=== PATIENT | male | born 1975 | race American Indian/Alaskan Native ===

== ENCOUNTER 2024-08-05 13:52 | Emergency (ER) | payer MEDICAID, SELFPAY ==
[2024-08-05 14:05] VITALS: BP 152/77; PULSE 77; RESP 18; TEMP 37.6; O2SAT 99
--- NOTE | 2024-08-05 14:10 | EDNOTE_ITS ---
ED General RME/HPI General Chief complaint: [facility] Compl[facility] Stated complaint: CATHETER ISSUES Time Seen by Provider: 08/05/24 14:09 Arrival date/time: 08/05/24 13:52 RME / HPI RME / HPI narrative: 49 year old male with history of recent quadriplegia s/p spinal cord injury due to C3 L5 fracture 06/02/2024 presents to the ED BIBA from home for evaluation of suprapubic catheter problems. Reports he had the suprapubic catheter placed during his admission at [facility] from 06/02/2024 through yesterday 08/04/2024 and was changed two weeks ago. States the suprapubic catheter had been working well up until this morning. Stated there was no urine in the bag and urine was leaking from his penis. No other associated symptoms reported. Denies fevers, chills, cough, shortness of breath, abdominal pain. Related Data Allergies Allergy/AdvReac Type Severity Reaction Status Date / Time johnson flavor Allergy Unknown SWELLING Unverified 07/11/08 11:55 Review of Systems Review of Systems Narrative Review of Systems: Constitutional: DENIES; Fevers Eyes: DENIES; Loss of vision Head/Ear/Nose: DENIES; Loss of hearing Throat: DENIES; Dysphagia Cardiovascular: DENIES; Chest pain, dyspnea or syncope Respiratory: DENIES; Shortness of breath Gastrointestinal: DENIES; Rectal bleeding or melena. Genitourinary: SEE HPI +collado catheter problems. DENIES; Dysuria (painful or difficult urination) Musculoskeletal: DENIES; Arthralgia (pain in a joint),; Skin: DENIES; Rash Neurological: DENIES; Loss of function or movement Psychiatric: DENIES; recent major life stressor, emotional problem, illicit drug use or abuse Endocrinology: DENIES; Weight change Hematologic/Lymphatic: DENIES; Abnormal bruising Allergic/Immunologic: DENIES; Urticaria (hives) Past Medical History Social History SMOKING STATUS: Never smoker ED Exam Narrative Physical exam: Patient is a quadriplegic from a recent spine injury comes into ER by EMS. Physical Exam: General: The vital signs were reviewed. Patient has intermittent involuntary movements of the right leg and unable to move his legs and has some movement of his right arm with a patent airway, no respiratory distress and has no apparent circulatory problems. Head & Scalp: Normocephalic, atraumatic. Face: Appears normal and is without lesions, deformity. Ears: Left external pinna appears normal. Right external pinna appears normal. Eyes: The sclera is anicteric. No obvious photophobia. The Left and Right Orbit/Lid/Conjunctiva appears normal without swelling, discoloration or injection. Nose: The nose is without deformity, discharge or tenderness; Throat: Appears normal. The mucous membranes are pink and moist without exudates, redness or mass seen. The tongue appears normal. Neck: The neck is supple and no apparent mass or adenopathy. Chest: The chest wall is normal in size and symmetry and has no chest wall tenderness or crepitus. The patient displays normal ventilator effort without retractions, accessory muscle use and has adequate air movement bilaterally with no wheezes and no rales. Cardiovascular: Regular rate and rhythm; No murmurs, rubs, or gallops; Gastrointestinal: The abdomen appears normal. No obvious hernias or mass. The abdomen is soft and benign, non-distended, with no pain, no guarding and no rebound tenderness. Bowel sounds are present and normal sounding. No CVA tenderness. Genitourinary: Patient was removed into room 8 because of high ER volumes we were able to actually get his close off and evaluate him until about 1730 hrs. we realize he has a suprapubic catheter not a Collado. See [facility] for further procedure Back/Spine: Extremities/Musculoskeletal/lymphatic: Some movement of the right arm minimal movement or not on the left right leg has some intermittent spasms. No purposeful movement. Skin: The skin is warm, dry and intact. No rashes. No petechia. No purpura. No abnormal bruising. The color is appropriate with no cyanosis. Mental status/Psychiatric: Mental status is appropriate for age. The patient has no apparent delusions, visual hallucinations, no apparent audible hallucinations. The patient has no apparent suicidal thoughts/ideation and no apparent homicidal thoughts/ideation. Neurological: The patient is awake, alert, interactive, cordial, cooperative and is oriented to name and situation. The patient follows answers questions appropriately The gait, station and balance a not tested due to acuity Course Quality Measures none Orders Category Date Time Status Collado to Leg Bag Routine Care 08/05/24 14:09 Ordered Vital Signs Vital signs: Vital Signs Temperature 99.6 F 08/05/24 14:05 Pulse Rate 77 08/05/24 14:05 Respiratory Rate 18 08/05/24 14:05 Blood Pressure 152/77 H 08/05/24 14:05 Pulse Oximetry (%) 99 08/05/24 14:05 Oxygen Delivery Method Room Air 08/05/24 14:05 Pulse ox is 99% on room air which is adequate. MDM Patient data External records reviewed:: EMS form Clinical information provided by:: patient and EMS Social determinants that could affect healthcare access:: none Patient has the following chronic illnesses:: recent quadriplegia s/p spinal cord injury due to C3 L5 fracture 06/02/2024 How is presenting disease/condition affected by chronic disease/condition?: exacerbated by Evaluation data The following diagnostics were reviewed and interpreted by me:: other (specify) (None ) Lab and/or radiology exams considered but not ordered:: None Interpretation Summary: As noted above Medications Medications considered but not ordered:: None Medication administrations:: None Consultations Consultation(s) initiated? (list below): No Diagnosis Differential Diagnosis ED Complaint MDM: SP catheter failure, SP catheter malfunction Most likely diagnosis given after review of the tests above:: Failed suprapubic catheter due to debris quadriplegia urethral breakdown from previous Collado. Admission Indicated Admission indicated?: not indicated Explain why admission is indicated or not indicated:: Patient signed out to Dr. Johnson Admission Request Was there a request for admission?: No Disposition Plan Disposition Plan: other (specify) (Signed out to Dr. Johnson pending ) Medical Decision Making MDM Narrative MDM Narrative: Patient is a see 3 and L5 quadriplegic from a recent accident he was at [facility] from June 02 till yesterday where he was discharged. Today his catheter was not functioning and he is leaking around his urethra. He denies any fever vomiting diarrhea he does not complain of any pain or other discomfort. Patient sat in the ambulance bay where high census in no room but eventually got into a room 8 where we discovered that he has a suprapubic catheter at about 1740 hrs. and then we tried to irrigate this but fluids will go and but nothing will go out in the urine is leaking out the urethra. We do not have urology services here and this is a fresh suprapubic catheter only 2 weeks and I do not feel comfortable changing this because of this he will need to be transferred to [facility] where they have his urological services and his last 2 months of care. Care will go to Dr. Johnson at 1810 hrs. 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
[2024-08-05 14:31] VITALS: PULSE 82; TEMP 38; O2SAT 98; BMI 27.3
[2024-08-05 15:48] VITALS: BP 142/83; PULSE 75; RESP 17; TEMP 36.9; O2SAT 96
[2024-08-05 18:01] VITALS: BP 134/79; PULSE 77; RESP 19; TEMP 37; O2SAT 94
--- NOTE | 2024-08-05 18:04 | PC.CC ---
Ladan ALSTON was consulted by concert singer Parisa regarding transportation back home for the patient. ASW made face to face contact with patient who reported [facility] will arrange for patient to be transported back home. ASW made contact with Captain Jacobs at [facility] and reported they will arrange transportation for the patient to return back home. When he is ready we can make contact with them at .
--- NOTE | 2024-08-05 18:06 | PC.CC ---
ASW was just informed that patient will not be needing transportation as patient will be a transfer.
--- NOTE | 2024-08-05 18:12 | EDNOTE_ITS ---
Emergency Room Addendum Addendum Narrative: 1800: Care assumed from Dr. Love the previous shift emergency physician. Past medical, surgical, social and family history reviewed. Vitals and home medications reviewed. Results and treatment plan discussed. I will assume the care of the patient at this time and will follow the patient, pending labs and transfer. Please refer to the emergency department record for history and examination from initial visit. 1843: Spoke with [facility]'s transfer center. Awaiting callback on whether or not they accept the patient for transfer. 2016: [facility]'s urologist recommends new suprapubic catheter placement. CBC is normal, CMP is normal, according to my interpretation. 2124: Patient's suprapubic catheter is now functionally properly and is flushing. Calling [facility] back at this time. 2125: Spoke with [facility]'s transfer center. Transfer is cancelled. UA is negative for nitrites. Urine culture is ordered. Patient is stable to be discharged home.
--- NOTE | 2024-08-05 18:21 | PC.NURSE ---
PT HAS SUPRAPUBIC CATH IN PLACE. PT CAME IN TODAY D/T LEAKING OUT OF PENIS, AND DRAINAGE AT INSERTION SITE OF CATH.
--- NOTE | 2024-08-05 18:25 | PC.CM ---
Addendum entered by Jodi Lizama RN 08/05/24 20:02: 2002 spoke to ED charge nurse and gave update. ED to follow from here. Addendum entered by Jodi Lizama RN 08/05/24 18:41: 1840 called [facility], spoke to Susan and initiated the transfer request. She stated she wants to speak with Dr. Johnson. Conference call connected. Original Note: 6 clinicals sent to [facility]. 1812 received call from ED charge nurse that pt needs to be transferred to [facility] for urology services/ continuation of care. Pt has subrapubic catheter but urine is leaking out of penis and drainage at the insertion site. I reviewed 's notes Reports he had the suprapubic catheter placed during his admission at [facility] from 06/02/2024 through yesterday.
[2024-08-05 18:35] LABS: Collection Type, Urine Catheter; Squamous Epithelial Cell,Urine 0 /hpf (0-5)
[2024-08-05 18:56] LABS: Lactate (Lactic Acid) 1.2 mMol/L (0.4-2.0)
[2024-08-05 19:04] LABS: Basophils # (Auto) 0.1 Thou/mm3 (0.0-0.2); Basophils % (Auto) 1 % (0-2.5); Eosinophils # (Auto) 0.2 Thou/mm3 (0.0-0.5); Eosinophils % (Auto) 3 % (0-10); Hematocrit 37.3 % (41.0-53.0); Hemoglobin 12.7 g/dL (13.5-16.0); Immature Granulocytes % (Auto) 0 % (0-0); Immature Granulocytes Auto 0.02 Thou/mm3 (0.00-0.00); Lymphocytes # (Auto) 2.1 Thou/mm3 (1.0-4.8); Lymphocytes % (Auto) 31 % (10-50); Mean Corpuscular Hemoglobin 29.2 pg (25.0-35.0); Mean Corpuscular Volume 86 fL (80-100); Monocytes # (Auto) 0.7 Thou/mm3 (0.0-0.8); Monocytes % (Auto) 10 % (0-12); Neutrophils # (Auto) 3.7 Thou/mm3 (1.8-7.7); Neutrophils % (Auto) 55 % (37-80); Nucleated Red Blood Cell % 0 /100 WBC (0); Platelet Count 294 Thou/mm3 (140-440); RDW Standard Deviation 43.3 fL (35.1-43.9); Red Blood Count 4.35 Miln/mm3 (4.50-5.90); White Blood Count 6.7 Thou/mm3 (3.8-10.6)
[2024-08-05 19:14] LABS: Amorphous Crystals,Urine Present (Absent); Bilirubin,Urine Negative (Negative); Blood,Urine 1+ (Negative); Clarity,Urine Turbid (Clear/Hazy); Color,Urine Yellow (Lt Yel-Yel); Glucose, Urine Negative (Negative); Ketones,Urine Negative (Negative); Leukocyte Esterase,Urine Positive (Negative); Nitrite,Urine Negative (Negative); Protein,Urine Trace (Neg - Trace); RBC,Urine 34 /hpf (0-3); Specific Gravity,Urine 1.016 (1.001-1.035); Urobilinogen,Urine Negative mg/dL (0.0-1.0); WBC,Urine 42 /hpf (0-5)
[2024-08-05 19:18] LABS: Culture Indicated,Urine Yes
[2024-08-05 19:18] LABS: Alanine Aminotransferase 49 U/L (10-49); Albumin, Serum 4.5 gm/dL (3.5-5.0); Albumin/Globulin Ratio 1.5 (1.2-2.2); Alkaline Phosphatase 68 U/L (46-116); Anion Gap 9 (7-16); Aspartate Amino Transferase 21 U/L (0-34); BUN/Creatinine Ratio 18 Ratio (12-20); Bilirubin,Total 0.5 mg/dL (0.3-1.2); Blood Urea Nitrogen 11 mg/dL (9-23); Calcium 9.9 mg/dL (8.3-10.6); Calcium (Corrected) 9.9 mg/dL (8.5-10.1); Chloride 105 mMol/L (98-107); Creatinine (Component) 0.6 mg/dL (0.6-1.3); Estimated Creatinine Clearance 142.5 mL/min (>60); Glucose 97 mg/dL (74-106); Osmolality,Calculated 276 (275-295); Potassium 3.6 mMol/L (3.4-5.1); Sodium 139 mMol/L (136-145); Total Protein 7.5 gm/dL (5.7-8.2); eGFR > 60 See Note
--- NOTE | 2024-08-05 20:05 | PC.NURSE ---
SP cath is draining urine. Pt has not had urine from penis since arival.
--- NOTE | 2024-08-05 21:26 | PC.NURSE ---
212, ACCEPTED TO [facility], ED TO ED BY , REPORT #[phone],SPOKE TO MARSHALL.
== END 2024-08-05 23:41 ==
PROVIDERS: Emergency Provider Emergency Medicine; PCP Physician Assistant
DX: T83.018A Breakdown (mechanical) of other urinary catheter, initial encounter (principal); G82.50 Quadriplegia, unspecified; Y84.6 Urinary catheterization as the cause of abnormal reaction of the patient, or of later complication, without mention of misadventure at the time of the procedure
CPT/HCPCS: 36415; 80053; 81001; 83605; 85025; 87077; 87086; 87186; 99285

== ENCOUNTER → 2024-08-13 | Outpatient (CLI) | payer MEDICAID, SELFPAY | END | disposition home or self-care (01) | PROVIDERS: PCP Internal Medicine; Referring Provider Internal Medicine; Visit Provider Student in an Organized Health Care Education/Training Program | DX: S14.109A Unspecified injury at unspecified level of cervical spinal cord, initial encounter (principal); W19.XXXA Unspecified fall, initial encounter; G82.50 Quadriplegia, unspecified; I10 Essential (primary) hypertension; Z93.0 Tracheostomy status | CPT/HCPCS: 99213; G0463 ==

== ENCOUNTER 2024-09-10 14:22 | Emergency (ER) | payer MEDICAID, SELFPAY ==
[2024-09-10 15:04] VITALS: BP 119/75; PULSE 77; RESP 20; TEMP 36.7; O2SAT 97
--- NOTE | 2024-09-10 15:35 | PD.EDMALE ---
ED Male Genitalurinary RME/HPI General Chief complaint: Urogenital-Male Stated complaint: CATHETER REPLACEMENT Time Seen by Provider: 09/10/24 14:28 Arrival date/time: 09/10/24 14:22 RME / HPI RME / HPI Narrative: 49 year old male with history of recent quadriplegia s/p spinal cord injury due to C3 L5 fracture 06/02/2024, previously had a chronic indweling collado catheter and is s/p suprapubic catheter placement 2 months ago presents to the ED BIBA from home for catheter malfunction. Patient reports after placement 2 months ago the catheter was draining well until this morning. Believes the catheter may be clogged. No other associated symptoms or complaints reported. Related Data Allergies Allergy/AdvReac Type Severity Reaction Status Date / Time johnson flavor Allergy Unknown SWELLING Unverified 07/11/08 11:55 Review of Systems Review of Systems Narrative Review of Systems: Gen: No fever, no chills, no weight loss EYES: No discharge, no visual changes, no pain HEENT: No ear pain, no congestion, no sore throat PULM: no shortness of breath, no cough, no congestion CV: No chest pain, no dyspnea on exertion, no palpitations, no chest tightness GI: No nausea, no vomiting, no diarrhea, no pain, no constipation : +catheter malfunction. No frequency, no urgency,? no dysuria Musc/skel: No joint pain, no back pain Skin: No rash, no ecchymosis, no lesions Neuro: No weakness, no headache Past Medical History Past Medical History NEUROLOGIC: Positive Paralysis (INCOMPLETE PARALYSIS) GENITOURINARY: Positive Genitourinary Disorders (SUPRAPUBIC CATH) OTHER HISTORY: Positive Blood Transfusions Surgical History SURGICAL: Positive Tracheostomy (REMOVED 07/22) Social History SMOKING STATUS: Never smoker ED Exam Narrative Physical exam: GENERAL APPEARANCE: AxOx4, no obvious distress, nontoxic appearing HEENT: NC, AT. MMM. EOMI, clear conjunctiva, oropharynx clear. NECK: Supple without lymphadenopathy. No stiffness or restricted ROM. HEART: Normal rate and regular rhythm, normal S1/S1, no m/r/g LUNGS: CTAB, moving air well. No crackles or wheezes are heard. ABDOMEN: Soft, suprapubic catheter noted, nontender, nondistended with good bowel sounds heard. BACK: No midline C/T/L spine pain or deformity, No CVAT, no obvious deformity. EXTREMITIES: Without cyanosis, clubbing or edema. MUSCULOSKELETAL: Paraplegic, no chest tenderness NEUROLOGICAL: Grossly nonfocal. Alert and oriented, paraplegic. CN not formally tested but appear grossly intact. Skin: Warm and dry without any rash. Course Quality Measures none Orders Category Date Time Status Nursing Core Measures: PRN Care 09/10/24 14:40 Active Reevaluation(s) Reevaluation #1: Catheter was irrigated and draining well. Patient remains clinically stable throughout the emergency department visit. Patient is amenable to discharge. Strict return precautions were outlined. Patient was discharged in stable condition. Time: 16:30 Vital Signs Vital signs: Vital Signs Temperature 98.1 F 09/10/24 15:04 Pulse Rate 77 09/10/24 15:04 Respiratory Rate 20 09/10/24 15:04 Blood Pressure 119/75 09/10/24 15:04 Pulse Oximetry (%) 97 09/10/24 15:04 Oxygen Delivery Method Room Air 09/10/24 15:04 Pulse ox is 97% on room air which is adequate. Urogenital - Male MDM Narrative MDM Narrative:: Rohini Loving am scribing for and in the presence of Dr. Negro. Patient data External records reviewed:: [facility] previous records (I reviewed ED visit on ) and EMS form Clinical information provided by:: patient, EMS and spouse () Social determinants that could affect healthcare access:: none Patient has the following chronic illnesses:: recent quadriplegia s/p spinal cord injury due to C3 L5 fracture 06/02/2024, previously had a chronic indweling collado catheter and is s/p suprapubic catheter placement 2 months ago How is presenting disease/condition affected by chronic disease/condition?: exacerbated by Evaluation data The following diagnostics were reviewed and interpreted by me:: other (specify) (No diagnostic testing ordered) Lab and/or radiology exams considered but not ordered:: None Interpretation Summary: N/A Medications / Prescriptions Medications or Prescriptions considered but not ordered:: None Medication administrations:: None Consultations Consultation(s) initiated? (list below): No Diagnosis Urogenital Male Differential Diagnosis: urinary tract infection, acute retention of urine and other (Suprapubic catheter malfunction) Most likely diagnosis given after review of the tests above:: Blocked suprapubic catheter Admission Indicated Admission indicated?: not indicated Admission Request Was there a request for admission?: No Disposition Plan Disposition Plan: Discharge Discharge Attestation Discharge Attestation: The patient and all family members were given an opportunity to ask questions and understood the discharge instructions. Discharge instructions specifically effects, indications for sooner follow up or return to the emergency department, and the expected course of current diagnosis. Patient condition: Stable Discharge Plan Plan Patient Disposition: HOME (Self Care) Problem List Clinical Impression: Blocked suprapubic catheter Patient/Caregiver Discharge Instructions Education Materials: Discharge Instructions Caring ... Additional Instructions: Follow-up with your primary care doctor as needed. Please return to the emergency department sooner symptoms worsen or if there is any new, concerning issues. Print Language: Estonian Stand Alone Forms: Cris Award Info., Patient Portal Info Letter
[2024-09-10 15:58] VITALS: PULSE 86; RESP 16; O2SAT 99
[2024-09-10 16:15] VITALS: BP 130/81; PULSE 75; RESP 18; TEMP 36.9; O2SAT 94
--- NOTE | 2024-09-10 17:14 | PC.NURSE ---
Collado irrigated with normal saline. able to irrigate and remove urine but with resistance. Patient drained 30 ml urine in collado catheter while also peeing through penis
[2024-09-10 18:37] VITALS: BP 116/66; PULSE 80; RESP 20; TEMP 36.7; O2SAT 94
--- NOTE | 2024-09-10 18:54 | PC.CC ---
Ladan ALSTON was consulted regarding transportation for the patient back to the [facility]. ASW made contact with [facility] who reports they would have the [facility] contact ASW to arrange transportation.
--- NOTE | 2024-09-10 19:10 | PC.CC ---
ASWLadan spoke to Reynaldo the [facility] who reports his assembly and packing supervisor Jn is looking into transportation back home for the patient. ASW will provide this information to welding tester Ronak.
== END 2024-09-10 20:12 | disposition home or self-care (01) ==
LOC: SERX 17:24
PROVIDERS: Emergency Provider Emergency Medicine; PCP Physician Assistant
DX: T83.098A Other mechanical complication of other urinary catheter, initial encounter (principal)
CPT/HCPCS: 99282

== ENCOUNTER 2024-12-21 17:13 | Inpatient (IN) | payer MEDICAID, SELFPAY ==
[2024-12-21] VITALS (8 sets, daily range): BP systolic 100–123; BP diastolic 62–70; PULSE 78–91; RESP 16–100; TEMP 37.1–38.9; O2SAT 96–100; BMI 28.7
--- NOTE | 2024-12-21 17:52 | PC.NURSE ---
PT BROUGHT TO ER BY [facility] FOR SWOLLEN L) ARM AND L) LEG. PT HAS A R) SUPRAPUBIC CATHETER DRAINING LACEY COLORED URINE. PT'S IN ROOM WITH HIM. PT RESTING COMFORTABLY IN ROOM. WILL CONT TO MONITOR. WILL INFORM PROVIDER OF TEMP 102.0 RECTAL.
--- NOTE | 2024-12-21 18:05 | XR_ITS ---
Examination: AP chest single view FINDINGS: Portable sitting AP chest single view Exam date 9: December 21, 2024 1849 hours INDICATION: Chest pain and shortness of breath today, sepsis FINDINGS: Suspicious for early pneumonia both bases Normal heart size Extensive cervical thoracic orthopedic stabilization IMPRESSION: Suspicious for early bibasilar pneumonia
--- NOTE | 2024-12-21 18:05 | EKG_ITS ---
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
--- NOTE | 2024-12-21 18:06 | XR_ITS ---
Examination: Duplex scan of the lower extremity, unilateral left Date and time of exam: December 21, 2024 1938 hours INDICATIONS: Left leg swelling beginning 2 days ago Technique: Duplex scan of the extremity veins using B-mode/grayscale imaging and Doppler spectral analysis and color flow Attention is directed to internal echogenicity, compression and augmentation involving these veins, color flow assessment, spectral analysis Findings: Positive for extensive nonocclusive thrombus left common femoral left superficial femoral left popliteal and peroneal veins IMPRESSION: Extensive acute deep vein thrombus
--- NOTE | 2024-12-21 18:06 | XR_ITS ---
Examination: Duplex scan of the upper extremity, unilateral left Date and time of exam: December 31, 2024 1938 hours INDICATIONS: Left arm swelling beginning 2 weeks ago Technique: Duplex scan of the extremity veins using B-mode/grayscale imaging and Doppler spectral analysis and color flow Attention is directed to internal echogenicity, compression and augmentation involving these veins, color flow assessment, spectral analysis Findings: Major deep venous structures in the extremity demonstrate normal course and caliber. There is no evidence of deep vein thrombosis. Normal color flow and spectral analysis Positive for thrombus, occlusive in the superficial basilic vein Impression: Negative for DVT.. Positive for thrombus in the superficial basilic vein
--- NOTE | 2024-12-21 18:12 | EDNOTE_ITS ---
ED General RME/HPI General Chief complaint: General Adult/Misc Complain Stated complaint: LEFT SIDE EXTREMITY SWELLING Time Seen by Provider: 12/21/24 18:00 Arrival date/time: 12/21/24 17:13 CC: Painless swelling of the left upper extremity and left lower extremity. Patient also noted to have a fever. Onset of the swelling was approximately 24 to 38 hours ago. Patient denies cough nausea vomiting headache shortness of breath or difficulty breathing. Patient is a quadriplegic but has complete body sensation all secondary to his C3-5 fracture many years ago. Related Data Allergies Allergy/AdvReac Type Severity Reaction Status Date / Time johnson flavor Allergy Unknown SWELLING Verified 12/21/24 18:42 Review of Systems Review of Systems Narrative Review of Systems: GEN: No fever, no chills, no weight loss EYES: No discharge, no visual changes, no pain HEENT: No ear pain, no congestion, no sore throat PULM: No shortness of breath, no cough, no congestion CV: No chest pain, no dyspnea on exertion, no palpitations GI: No nausea, no vomiting, no diarrhea, no pain, no constipation : No frequency, no urgency, no dysuria MUSC/SKEL: No joint pain, no back pain SKIN: No rash PSYCH: No hallucinations, no depression HEME/LYMPH: No easy bleeding or bruising tendencies NEURO: No weakness, no headache Course Quality Measures none Orders Category Date Time Status Bedside Influenza A&B Antigen Test NOW Care 12/21/24 18:06 Completed COVID-19 Screening Questionnaire NOW Care 12/21/24 20:11 Active Inspector Government Property STAT Care 12/21/24 18:05 Active Continuous Pulse Oximetry STAT Care 12/21/24 18:05 Completed Decision to Admit X1 Care 12/21/24 20:10 Completed EKG (ED ONLY) *Do not use* NOW Care 12/21/24 18:05 Completed In and Out Catheter X1PRN Care 12/21/24 18:05 Active Insert IV NOW Care 12/21/24 18:05 Active Miscellaneous Nursing Order NOW Care 12/21/24 19:39 Active NPO STAT Care 12/21/24 18:05 Active Strict Intake and Output Routine Care 12/21/24 18:05 Ordered Referral Wound Care Routine Cons 12/21/24 20:11 Active EKG (ED Only) Stat Exams 12/21/24 18:05 Draft US venous doppler LE LT Stat Exams 12/21/24 18:06 Completed US venous doppler UE LT Stat Exams 12/21/24 18:06 Completed XR chest 1V SEPSIS PROTOCOL Stat Exams 12/21/24 18:05 Completed B-Type Natriuretic Peptide Stat Lab 12/21/24 19:20 Completed Blood Culture (Lab) Stat Lab 12/21/24 19:21 Received CBC Stat Lab 12/21/24 19:20 Completed Comprehensive Metabolic Panel Stat Lab 12/21/24 19:20 Completed LDH (Lactate Dehydrogenase) Stat Lab 12/21/24 19:20 Completed Lactate (Lactic Acid) Stat Lab 12/21/24 19:20 Completed Lipase Stat Lab 12/21/24 19:20 Completed MRSA Nasal Screen Stat Lab 12/21/24 19:26 Ordered Magnesium Stat Lab 12/21/24 19:20 Completed Partial Thromboplastin Time Stat Lab 12/21/24 19:20 Completed Phosphorous Stat Lab 12/21/24 19:20 Completed Procalcitonin Stat Lab 12/21/24 19:20 Completed Prothrombin Time with INR Stat Lab 12/21/24 19:20 Completed Troponin I Stat Lab 12/21/24 19:20 Completed Urinalysis Stat Lab 12/21/24 20:31 Completed Urine Culture Stat Lab 12/21/24 20:31 Received Acetaminophen Ivpb [Ofirmev Inj] Med 12/21/24 18:06 Discontinued 1,000 mg in 100 ml IV X1 Doxycycline Inj [Vibramycin Inj] 100 mg Med 12/21/24 19:26 Discontinued Sodium Chloride 0.9% (Pop) [NS 0.9% mini bag] 100 ml IV X1 Magnesium Sulfate 4 GM Ivpb [Magnesium Sulfate Ivpb] Med 12/21/24 20:03 Active 4 gm in 50 ml IV X1 Ringers Lactated 1000 ml [Lactated Ringers] 1,000 ml Med 12/21/24 18:39 Discontinued IV 999 mls/hr cefTRIAXone/D5w 1gm IV premix [Rocephin/D5w 1gm IV Med 12/21/24 19:26 Discontinued premix] 1 gm in 50 ml IV X1 Oxygen Delivery NOW RT 12/21/24 18:05 Active Vital Signs Vital signs: Vital Signs Temperature 98.7 F 12/21/24 17:21 Pulse Rate 91 12/21/24 17:21 Respiratory Rate 18 12/21/24 17:21 Blood Pressure 100/62 12/21/24 17:21 Pulse Oximetry (%) 98 12/21/24 17:21 Oxygen Delivery Method Room Air 12/21/24 17:21 Discharge Plan Plan Patient Disposition: Admit Acute Care w/in Hospital Problem List Clinical Impression: Sepsis, Swelling of extremity, left, Community acquired pneumonia MDM Medication Administration(s) Medication Administration History Acetaminophen (Acetaminophen 325 Mg Tablet) 650 mg PO Q6H PRN PRN Reason: PAIN OR FEVER > 101 Stop: 01/20/25 21:18 Baclofen (Baclofen 10 Mg Tablet) 20 mg PO TID [facility] Stop: 01/20/25 21:59 Last Admin: 12/21/24 21:53 Dose: 20 mg Documented By: EF Diazepam (Diazepam 5 Mg Tablet) 5 mg PO HS [facility] Stop: 12/27/24 20:59 Enoxaparin Sodium (Enoxaparin Sod Inj 100 Mg/Ml Syringe) 100 mg 1 mg/kg (100 mg) SC BID [facility] Stop: 01/04/25 21:04 Last Admin: 12/21/24 21:54 Dose: 100 mg Documented By: EF Gabapentin (Gabapentin 100 Mg Capsule) 100 mg PO TID [facility] Stop: 01/20/25 21:59 Last Admin: 12/21/24 21:54 Dose: 100 mg Documented By: EF Magnesium Sulfate (Magnesium Sulfate Ivpb) 4 gm in 50 mls @ 12.5 mls/hr IV X1 ONE Stop: 12/22/24 00:02 Last Admin: 12/21/24 20:55 Dose: 12.5 mls/hr Documented By: EF Ceftriaxone Sodium/Dextrose (Rocephin/D5w 1gm Iv Premix) 1 gm in 50 mls @ 100 mls/hr IV QDAY [facility] Stop: 12/29/24 21:24 Ondansetron HCl (Ondansetron Inj 2 Mg/Ml Inj 2 Ml) 4 mg IV Q6H PRN; Protocol PRN Reason: NAUSEA OR VOMITING Stop: 01/20/25 21:18 Sennosides (Senna Tablet) 2 tab PO QDAY [facility]; Protocol Stop: 01/21/25 08:59 Tizanidine HCl (Tizanidine Hcl 2 Mg Tablet) 2 mg PO QID [facility] Stop: 01/20/25 21:44 Discontinued Medications Acetaminophen (Acetaminophen 325 Mg Tablet) 650 mg PO X1 ONE Stop: 12/21/24 20:59 Last Admin: 12/21/24 21:54 Dose: 650 mg Documented By: EF Acetaminophen (Ofirmev Inj) 1,000 mg in 100 mls @ 250 mls/hr IV X1 ONE Stop: 12/21/24 18:29 Last Infusion: 12/21/24 19:50 Dose: Infused Documented By: Admin: 12/21/24 19:26 Dose: 250 mls/hr Documented By: EF Lactated Ringer's (Lactated Ringers) 1,000 mls @ 999 mls/hr IV .Q1H1M ONE Stop: 12/21/24 19:39 Last Infusion: 12/21/24 20:34 Dose: Infused Documented By: Admin: 12/21/24 19:33 Dose: 999 mls/hr Documented By: EF Ceftriaxone Sodium/Dextrose (Rocephin/D5w 1gm Iv Premix) 1 gm in 50 mls @ 100 mls/hr IV X1 ONE Stop: 12/21/24 19:55 Last Infusion: 12/21/24 20:03 Dose: Infused Documented By: Admin: 12/21/24 19:33 Dose: 100 mls/hr Documented By: EF Doxycycline Hyclate 100 mg/ (Sodium Chloride) 100 mls @ 100 mls/hr IV X1 ONE Stop: 12/21/24 20:25 Last Infusion: 12/21/24 20:33 Dose: Infused Documented By: Admin: 12/21/24 19:33 Dose: 100 mls/hr Documented By: EF
--- NOTE | 2024-12-21 18:20 | PC.NURSE ---
SEPSIS ALERT CALLED 18:07
--- NOTE | 2024-12-21 18:38 | EDNOTE_ITS ---
ED General RME/HPI General Chief complaint: General Adult/[facility] Complain Stated complaint: LEFT SIDE EXTREMITY SWELLING Time Seen by Provider: 12/21/24 18:00 Arrival date/time: 12/21/24 17:13 RME / HPI RME / HPI narrative: This patient is a 49-year-old bedbound male with past medical history of quadriplegia due to ground-level fall a year ago complicating with C3-C5 fracture with back and neck surgery with rods and had a trach healed, history of chronic pains, suprapubic catheter, former smoker and drinker quit drinking and smoking a year ago presented with chief complaint of left arm and left leg swelling. Patient's is on the bedside and they reported the she noticed patient is having left leg swelling x 1 day ago. He also has left upper extremity swelling noticed couple of days ago. Patient was found to have a fever spike today. Patient does have complete body sensation. Denies any pain in the lower extremities. He got recent replacement of suprapubic cath a week ago by his urologist, Dr. Valencia. Patient follows up primary care doctor. He denies any cough, shortness of breath, chest pain, nausea, vomiting, abdominal discomfort, lightheadedness or dizziness. Vitals showed soft blood pressure 100/62, tachycardia 91, respiratory rate 18. Febrile fever 102.0 and saturating well on room air. CBC showed leukocytosis white count 12.2, normocytic anemia hemoglobin 11.7. Platelet count 300. CHEM panel showed electrolytes unremarkable. Kidney function stable with creatinine 0.6. Blood glucose 114. Lactic acid 1.4. Magnesium 1.6. Liver enzymes unremarkable. Troponin I was negative. Lipase and procalcitonin was negative. Sepsis alert was initiated as patient had 2/4 SIRS criteria with fever and tachycardia. Suprapubic catheter appears cloudy with some crusting around the tube. EKG showed sinus rhythm with QTc 380. Chest x-ray showed bibasilar pneumonia. Dose of Rocephin and doxycycline was given in addition to bolus of fluid and Mag 4g x1. PMH: As above PSH: Rods in the leg with back surgery, trach healed with scar SH: Quit smoking and drinking alcohol a year ago. Used to smoke a pack a day. Used to drink 1-2 beers every day. No history of illicit drug use Allergies: No known drug allergies, johnson flavor causes swelling Home medications: Tylenol, gabapentin, Benadryl,Diazepam, senna, baclofen, tizanidine, vitamin D Differentials include possible DVT, Sepsis due to UTI and PNA?, wound infection/decubitus ulcer stage II. Hospitalist team was called for admission due to sepsis likely due to community-acquired pneumonia.Team informed to follow with Doppler of left upper and lower ext. COVID-19 and FLU came negative. Doppler ultrasound showed occlusive DVT in the superficial basilic vein left upper extremity and nonocclusive extensive DVT in lower extremity. Family/ was informed regarding the blood clot in his vein. Patient would need heparin drip therapeutic for deep vein thrombosis. MD complaint: Left upper extremity and lower extremity swelling Onset (ago): day(s) (1) Related Data Allergies Allergy/AdvReac Type Severity Reaction Status Date / Time johnson flavor Allergy Unknown SWELLING Verified 12/21/24 18:42 Review of Systems Review of Systems Systems Reviewed: All systems reviewed, normal except as documented Past Medical History Past Medical History NEUROLOGIC: Positive Paralysis (INCOMPLETE PARALYSIS) GENITOURINARY: Positive Genitourinary Disorders (SUPRAPUBIC CATH) OTHER HISTORY: Positive Blood Transfusions Surgical History SURGICAL: Positive Tracheostomy (REMOVED 07/22) Social History SMOKING STATUS: Never smoker ED Exam Narrative Physical exam: GENERAL APPEARANCE: Bedbound disheveled quadriplegic male in no acute distress. HEENT: NC, AT. Dry mucous membrane. EOMI, clear conjunctiva, oropharynx clear. NECK: Supple without lymphadenopathy. No stiffness or restricted ROM. HEART: Sinus tachycardia with regular rhythm, normal S1/S2, no m/r/g LUNGS: CTAB, moving air well. No crackles or wheezes are heard. ABDOMEN: Soft, nontender, nondistended with good bowel sounds heard. Suprapubic catheter. BACK: Stage II decubitus ulcer on sacrum appears clean slightly hyperemic no pus seen and redness on the mid back EXTREMITIES: Left upper extremity and lower extremity swelling. NEUROLOGICAL: Grossly nonfocal. AAO x 3, quadriplegic. : Suprapubic catheter with some mild crusting Skin: Warm and dry without any rash. Psych: Appropriate mood and affect Course Course Course Narrative: Differentials include possible DVT, Sepsis due to UTI and PNA?, wound infection/decubitus ulcer stage II. Hospitalist team was called for admission due to sepsis likely due to community-acquired pneumonia.Team informed to follow with Doppler of left upper and lower ext. COVID-19 and FLU came negative. Doppler ultrasound showed occlusive DVT in the superficial basilic vein left upper extremity and nonocclusive extensive DVT in lower extremity. Dose of R ocephin and doxycycline was given in addition to bolus of fluid and Mag 4g x1. Quality Measures none Orders Category Date Time Status Bedside Influenza A&B Antigen Test NOW Care 12/21/24 18:06 Active COVID-19 Screening Questionnaire NOW Care 12/21/24 20:11 Active Safety Instructor STAT Care 12/21/24 18:05 Active Continuous Pulse Oximetry STAT Care 12/21/24 18:05 Completed Decision to Admit X1 Care 12/21/24 20:10 Active EKG (ED ONLY) *Do not use* NOW Care 12/21/24 18:05 Completed In and Out Catheter X1PRN Care 12/21/24 18:05 Active Insert IV NOW Care 12/21/24 18:05 Active Miscellaneous Nursing Order NOW Care 12/21/24 19:39 Active NPO STAT Care 12/21/24 18:05 Active Strict Intake and Output Routine Care 12/21/24 18:05 Ordered Referral Wound Care Routine Cons 12/21/24 20:11 Active EKG (ED Only) Stat Exams 12/21/24 18:05 Draft US venous doppler LE LT Stat Exams 12/21/24 18:06 Taken US venous doppler UE LT Stat Exams 12/21/24 18:06 Taken XR chest 1V SEPSIS PROTOCOL Stat Exams 12/21/24 18:05 Completed B-Type Natriuretic Peptide Stat Lab 12/21/24 19:20 Completed Blood Culture (Lab) Stat Lab 12/21/24 19:21 Received CBC Stat Lab 12/21/24 19:20 Completed Comprehensive Metabolic Panel Stat Lab 12/21/24 19:20 Completed LDH (Lactate Dehydrogenase) Stat Lab 12/21/24 19:20 Completed Lactate (Lactic Acid) Stat Lab 12/21/24 19:20 Completed Lipase Stat Lab 12/21/24 19:20 Completed MRSA Nasal Screen Stat Lab 12/21/24 19:26 Ordered Magnesium Stat Lab 12/21/24 19:20 Completed Partial Thromboplastin Time Stat Lab 12/21/24 19:20 Completed Phosphorous Stat Lab 12/21/24 19:20 Completed Procalcitonin Stat Lab 12/21/24 19:20 Completed Prothrombin Time with INR Stat Lab 12/21/24 19:20 Completed Troponin I Stat Lab 12/21/24 19:20 Completed Urinalysis Stat Lab 12/21/24 18:05 Ordered Urine Culture Stat Lab 12/21/24 18:05 Ordered Acetaminophen Ivpb [Ofirmev Inj] Med 12/21/24 18:06 Discontinued 1,000 mg in 100 ml IV X1 Doxycycline Inj [Vibramycin Inj] 100 mg Med 12/21/24 19:26 Discontinued Sodium Chloride 0.9% (Pop) [NS 0.9% mini bag] 100 ml IV X1 Magnesium Sulfate 4 GM Ivpb [Magnesium Sulfate Ivpb] Med 12/21/24 20:03 Active 4 gm in 50 ml IV X1 Ringers Lactated 1000 ml [Lactated Ringers] 1,000 ml Med 12/21/24 18:39 Discontinued IV 999 mls/hr cefTRIAXone/D5w 1gm IV premix [Rocephin/D5w 1gm IV Med 12/21/24 19:26 Discontinued premix] 1 gm in 50 ml IV X1 Oxygen Delivery NOW RT 12/21/24 18:05 Active Vital Signs Vital signs: Vital Signs Temperature 98.7 F 12/21/24 17:21 Pulse Rate 91 12/21/24 17:21 Respiratory Rate 18 12/21/24 17:21 Blood Pressure 100/62 12/21/24 17:21 Pulse Oximetry (%) 98 12/21/24 17:21 Oxygen Delivery Method Room Air 12/21/24 17:21 Discharge Plan Plan Patient Disposition: Admit Acute Care w/in Hospital Problem List Clinical Impression: Sepsis, Swelling of extremity, left, Community acquired pneumonia MDM Narrative Sign Out note: Differentials include possible DVT, Sepsis due to UTI and PNA?, wound infection/decubitus ulcer stage II. Hospitalist team was called for admission due to sepsis likely due to community-acquired pneumonia.Team informed to follow with Doppler of left upper and lower ext. COVID-19 and FLU pending. Patient will be admitted. Dose of Rocephin and doxycycline was given in addition to bolus of fluid and Mag 4g x1. Medication Administration(s) Medication Administration History Magnesium Sulfate (Magnesium Sulfate Ivpb) 4 gm in 50 mls @ 12.5 mls/hr IV X1 ONE Stop: 12/22/24 00:02 Discontinued Medications Acetaminophen (Ofirmev Inj) 1,000 mg in 100 mls @ 250 mls/hr IV X1 ONE Stop: 12/21/24 18:29 Last Infusion: 12/21/24 19:50 Dose: Infused Documented By: Admin: 12/21/24 19:26 Dose: 250 mls/hr Documented By: EF Lactated Ringer's (Lactated Ringers) 1,000 mls @ 999 mls/hr IV .Q1H1M ONE Stop: 12/21/24 19:39 Last Admin: 12/21/24 19:33 Dose: 999 mls/hr Documented By: EF Ceftriaxone Sodium/Dextrose (Rocephin/D5w 1gm Iv Premix) 1 gm in 50 mls @ 100 mls/hr IV X1 ONE Stop: 12/21/24 19:55 Last Infusion: 12/21/24 20:03 Dose: Infused Documented By: Admin: 12/21/24 19:33 Dose: 100 mls/hr Documented By: EF Doxycycline Hyclate 100 mg/ (Sodium Chloride) 100 mls @ 100 mls/hr IV X1 ONE Stop: 12/21/24 20:25 Last Admin: 12/21/24 19:33 Dose: 100 mls/hr Documented By: EF
--- NOTE | 2024-12-21 18:40 | PC.NURSE ---
CLEANED SUPRAPUBIC CATH W/ NS AND APPLIED NEW 4X4.
[2024-12-21] MEDS: ACETAMINOPHEN IVPB 1,000 MG/100 ML VIAL 250 MG IV (19:26)
[2024-12-21 19:29] LABS: Lactate (Lactic Acid) 1.4 mMol/L (0.4-2.0)
[2024-12-21 19:32] LABS: Basophils # (Auto) 0.1 Thou/mm3 (0.0-0.2); Basophils % (Auto) 0 % (0-2.5); Eosinophils # (Auto) 0.2 Thou/mm3 (0.0-0.5); Eosinophils % (Auto) 2 % (0-10); Hematocrit 33.7 % (41.0-53.0); Hemoglobin 11.7 g/dL (13.5-16.0); Immature Granulocytes % (Auto) 0 % (0-0); Immature Granulocytes Auto 0.05 Thou/mm3 (0.00-0.00); Lymphocytes # (Auto) 2.1 Thou/mm3 (1.0-4.8); Lymphocytes % (Auto) 17 % (10-50); Mean Corpuscular HGB Conc 34.7 g/dl (31.0-37.0); Mean Corpuscular Hemoglobin 29.6 pg (25.0-35.0); Mean Corpuscular Volume 85 fL (80-100); Monocytes # (Auto) 1.2 Thou/mm3 (0.0-0.8); Monocytes % (Auto) 10 % (0-12); Neutrophils # (Auto) 8.5 Thou/mm3 (1.8-7.7); Neutrophils % (Auto) 70 % (37-80); Nucleated Red Blood Cell % 0 /100 WBC (0); Platelet Count 300 Thou/mm3 (140-440); RDW Standard Deviation 45.2 fL (35.1-43.9); Red Blood Count 3.95 Miln/mm3 (4.50-5.90); White Blood Count 12.2 Thou/mm3 (3.8-10.6)
[2024-12-21] MEDS: RINGERS LACTATED 1000 ML 1,000 ML 999 ML IV (19:33)
[2024-12-21] MEDS: DOXYCYCLINE INJ 100 MG in SODIUM CHLORIDE 0.9% (POP) 100 ML IV (19:33)
[2024-12-21] MEDS: cefTRIAXone/D5w 1gm IV premix 1 GM/50 ML BAG IV (19:33)
[2024-12-21 19:44] LABS: INR 1.1 (0.9-1.3); Partial Thromboplastin Time 35.6 Seconds (22.0-36.0); Prothrombin Time 12.2 Seconds (9.0-12.2)
[2024-12-21 19:49] LABS: B-Type Natriuretic Peptide < 20 pg/mL (0-100)
[2024-12-21 19:58] LABS: Alanine Aminotransferase 29 U/L (10-49); Albumin, Serum 4.3 gm/dL (3.5-5.0); Albumin/Globulin Ratio 1.3 (1.2-2.2); Alkaline Phosphatase 90 U/L (46-116); Anion Gap 7 (7-16); Aspartate Amino Transferase 19 U/L (0-34); BUN/Creatinine Ratio 10 Ratio (12-20); Bilirubin,Total 0.7 mg/dL (0.3-1.2); Blood Urea Nitrogen 6 mg/dL (9-23); Calcium 9.1 mg/dL (8.3-10.6); Calcium (Corrected) 9.1 mg/dL (8.5-10.1); Carbon Dioxide 26.7 mMol/L (20.0-31.0); Chloride 99 mMol/L (98-107); Creatinine (Component) 0.6 mg/dL (0.6-1.3); Estimated Creatinine Clearance 192.6 mL/min (>60); Globulin 3.4 gm/dL (2.3-3.5); Glucose 114 mg/dL (74-106); LDH (Lactate Dehydrogenase) 183 U/L (120-246); Lipase 28 U/L (12-53); Magnesium 1.6 mg/dL (1.6-2.6); Osmolality,Calculated 264 (275-295); Phosphorous 3.4 mg/dL (2.4-5.1); Potassium 4.2 mMol/L (3.4-5.1); Procalcitonin 0.11 ng/ml (0.0-0.49); Sodium 133 mMol/L (136-145); Total Protein 7.7 gm/dL (5.7-8.2); Troponin I < 0.002 ng/mL (0.0-0.045); eGFR > 60 See Note
[2024-12-21 20:38] LABS: Collection Type, Urine Clean Catch; Squamous Epithelial Cell,Urine 0 /hpf (0-5)
--- NOTE | 2024-12-21 20:39 | PD.EVENT ---
Documentation for date of: 12/21/24 Event Note Event Note: A 49-year-old male presented to the ER with the chief complaint of left arm and left leg swelling. This bedbound patient described one day of new left leg swelling, first noticed in the morning by his . She noted that the leg appeared enlarged and warm, which had never occurred before. The left arm swelling had been present intermittently and typically improved with elevation. He also c/o subjective fever, black discoloration on his feet, and early skin changes on his back in areas of pressure. Patient denied pain, cough, shortness of breath, chest pain, nausea, vomiting, abdominal discomfort, diarrhea, dizziness, or lightheadedness. He previously had a tracheostomy but now breathes and speaks normally after passing swallowing evaluations. He has a chronic suprapubic catheter, which was changed one week ago. His contacted the clinic in the morning, and based on advice from a nurse, brought him to the ER due to concern for infection. The patient has a history of quadriplegia secondary to C3?C5 fractures from a fall on June 02 last year. Medical history includes chronic pain and suprapubic catheter dependency. Surgical history includes spinal rods and tracheostomy. Current medications include Tylenol, Gabapentin, Benadryl, Diazepam, Senna, Baclofen, Tizanidine, Vitamin D. Social history includes former tobacco and alcohol use (quit one year ago); no illicit drug use. He is bedbound but has some leg movement. His is his primary caregiver and reports repositioning him every two hours. Functional status includes ability to eat independently. In the ER, vital signs recorded as temp 102.0?F, HR 88 bpm, RR 18, BP 100/62 mmHg. Labs revealed WBC 12.2, RBC 3.95, Hgb 11.7, Hct 33.7, Na 133, K 4.2, Cl 99, BUN 6, Creatinine 0.6, Mg 1.6, Phos 3.4, BNP <20, Troponin <0.002, Procalcitonin 0.11, AST 19, ALT 29, Bilirubin 0.7, Lactic acid 1.4. Imaging demonstrated chest X-ray suspicious for early bibasilar pneumonia. DVT study showed positive for extensive nonocclusive thrombus in the left common femoral, left superficial femoral, left popliteal, and peroneal veins and positive for thrombus in the superficial basilic vein. UA pending. Admit for further management. #Sepsis Assessment: Fever (Tmax 102?F), leukocytosis (WBC 12.2), early pneumonia (bibasilar opacities on CXR) Plan: - Initiate broad-spectrum IV antibiotics - Pending UA - Trend lactate levels - Monitor for respiratory decompensation; maintain O2 saturation >92% #Left Lower Extremity DVT and Left Upper Extremity Superficial Thrombophlebitis Assessment: Extensive nonocclusive thrombus in left common femoral, superficial femoral, popliteal, peroneal veins; superficial vein thrombus in left basilic vein Plan: - Initiate therapeutic anticoagulation - Monitor for signs of propagation or PE - Elevate extremities - Avoid PICC or IV lines in affected extremity #Quadriplegia (Chronic, C3?C5) Assessment: Stable; bedbound; requires repositioning; pressure ulcer risk Plan: - Strict q2h turning schedule and pressure offloading - Consider wound care consult for skin changes and early breakdown - Continue current supportive regimen and medications #Chronic Pain (Neuropathic and Musculoskeletal) Assessment: Ongoing management with gabapentin, baclofen, tizanidine, diazepam Plan: - Continue home medications #Nutrition and Functional Support Assessment: Able to eat independently; history of tracheostomy; passed swallowing evaluation Plan: - Maintain regular diet as tolerated
[2024-12-21] MEDS: Magnesium Sulfate 4 GM Ivpb 4 GM/50 ML BAG IV (20:55)
[2024-12-21 21:05] LABS: Bacteria,Urine 4+; Bilirubin,Urine Negative (Negative); Blood,Urine Trace (Negative); Color,Urine Drk-Yellow (Lt Yel-Yel); Glucose, Urine Negative (Negative); Ketones,Urine Negative (Negative); Leukocyte Esterase,Urine Positive (Negative); Nitrite,Urine Negative (Negative); Protein,Urine 1+ (Neg - Trace); RBC,Urine 21 /hpf (0-3); Specific Gravity,Urine 1.023 (1.001-1.035); Urobilinogen,Urine 12 mg/dL (0.0-1.0); WBC,Urine 554 /hpf (0-5)
[2024-12-21 21:10] LABS: Clarity,Urine Turbid (Clear/Hazy)
--- NOTE | 2024-12-21 21:35 | PD.RESHP ---
Documentation for date of: 12/21/24 HPI History of Present Illness History of present illness: The patient is a 49-year-old male with a past medical history of hypertension, quadriplegic status following a fall and C3 C5 fracture, who was brought into the emergency room complaining of swelling left lower extremity. The patient has minimal motor function of his left upper extremity, but is quadriplegic at baseline, needs help with all ADLs. He has a suprapubic catheter in place, which was changed last week after it was clogged. The patient has preserved sense of touch but no sense of pain. Yesterday patient noticed swelling of his left lower extremity and fever and came to the emergency room. Denied chest pain, shortness of breath, cough and sputum. In the ER, patient was noted to have a Tmax 102F, CBC showed leukocytosis, normal renal function, troponins within normal admit, Pro-Stefano within normal limit, urinalysis shows UTI. Lactic acid within normal limit, imaging showed early progressive pneumonia, DVT showed extensive nonocclusive thrombus in superficial and deep veins left lower and upper extremity. The patient was given ceftriaxone x 1 and doxycycline x 1, received 1 L IV fluid bolus and IV Tylenol. Past medical history: History of C3-C5 fracture status post surgery, quadriplegic status following fall. Hypertension. neurogenic bladder with suprapubic catheter in place. Past surgical history: Surgical correction of vertebral fracture in May 2024. History of tracheostomy. Social history: Denies smoking and drinking Review of Systems Review of Systems Narrative Review of Systems: General: Denies fevers or chills HEENT: Denies congestion or sore throat Heart: Denies chest pain or palpitations Lungs: Denies shortness of breath or cough Abdomen: Denies diarrhea, nausea, vomiting, constipation, bright red blood per rectum or melena. The patient requires stool softeners and suppositories every morning. Genitourinary: Denies frequency, urgency, dysuria, or hematuria Musculoskeletal: Complains of swelling left lower extremity. Neurology: Denies any numbness, tingling Review of systems otherwise negative except what is mentioned above. Past Medical History Past Medical History NEUROLOGIC: Positive Paralysis CARDIAC: Negative Congestive Heart Failure RESPIRATORY: Negative Chronic Obstructive Pulmonary Disease (COPD) GENITOURINARY: Positive Genitourinary Disorders; Negative Renal Disease MUSCULOSKELETAL: Negative Musculoskeletal Disorders ENDOCRINE: Negative Diabetes Mellitus Type 1 or Diabetes Mellitus Type 2 OTHER HISTORY: Positive Blood Transfusions; Negative Blood Transfusion Reaction, Anesthesia Reactions or Cancer Surgical History SURGICAL: Positive Tracheostomy Social History SMOKING STATUS: Never smoker Exam Vital Signs Temp Pulse Resp BP Pulse Ox O2 Del Method 101.5 F H 85 20 123/70 99 Room Air 12/21/24 20:22 12/21/24 20:22 12/21/24 20:22 12/21/24 20:22 12/21/24 20:22 12/21/24 20:22 Narrative Exam General: AOx3, cooperative, disheveled quadriplegic male, laying in bed, suprapubic catheter in place. Skin: Intact, no cyanosis or edema noted. Swelling left lower extremity and left upper extremity. HEENT: Atraumatic/normocephalic, ARMANDO, neck supple. Heart: RRR, S1 and S2 without clicks or murmurs. Lungs: Clear on auscultation bilaterally, no difficulty breathing. Abdomen: Soft, nontender. Bowel sounds present. Vascular: Peripheral pulses palpable. Neuro: No focal neurological deficits noted. Results: Labs 12/21/24 19:20 12/21/24 19:20 Labs: Short CBC 12/21/24 Range/Units 19:20 WBC 12.2 H (3.8-10.6) Thou/mm3 Hgb 11.7 L (13.5-16.0) g/dL Hct 33.7 L (41.0-53.0) % Plt Count 300 (140-440) Thou/mm3 BMP 12/21/24 19:20 Sodium 133 L Potassium 4.2 Chloride 99 Carbon Dioxide 26.7 BUN 6 L Creatinine 0.6 Glucose 114 H Calcium 9.1 Cardiac Enzymes 12/21/24 Range/Units 19:20 Troponin I < 0.002 (0.0-0.045) ng/mL Liver Function 12/21/24 Range/Units 19:20 Total Bilirubin 0.7 (0.3-1.2) mg/dL AST 19 (0-34) U/L ALT 29 (10-49) U/L Alkaline Phosphatase 90 (46-116) U/L Albumin 4.3 (3.5-5.0) gm/dL Urine 12/21/24 Range/Units 20:31 Urine Color Drk-Yellow A (Lt Yel-Yel) Urine Clarity Turbid A (Clear/Hazy) Urine pH 6.0 (5.0-7.0) Ur Specific [place] 1.023 (1.001-1.035) Urine Protein 1+ A (Neg - Trace) Urine Glucose (UA) Negative (Negative) Quality Measures Quality Measures none Medications Home Medications and Allergies Allergies Allergy/AdvReac Type Severity Reaction Status Date / Time johnson flavor Allergy Unknown SWELLING Verified 12/21/24 18:42 Visit Medications Acetaminophen (Acetaminophen 325 Mg Tablet) 650 mg PO Q6H PRN PRN Reason: PAIN OR FEVER > 101 Stop: 01/20/25 21:18 Baclofen (Baclofen 10 Mg Tablet) 20 mg PO TID [facility] Stop: 01/20/25 21:59 Diazepam (Diazepam 5 Mg Tablet) 5 mg PO HS [facility] Stop: 12/27/24 20:59 Enoxaparin Sodium (Enoxaparin Sod Inj 100 Mg/Ml Syringe) 100 mg 1 mg/kg (100 mg) SC BID [facility] Stop: 01/04/25 21:04 Gabapentin (Gabapentin 100 Mg Capsule) 100 mg PO TID [facility] Stop: 01/20/25 21:59 Magnesium Sulfate (Magnesium Sulfate Ivpb) 4 gm in 50 mls @ 12.5 mls/hr IV X1 ONE Stop: 12/22/24 00:02 Last Admin: 12/21/24 20:55 Dose: 12.5 mls/hr Ceftriaxone Sodium/Dextrose (Rocephin/D5w 1gm Iv Premix) 1 gm in 50 mls @ 100 mls/hr IV QDAY [facility] Stop: 12/29/24 21:24 Ondansetron HCl (Ondansetron Inj 2 Mg/Ml Inj 2 Ml) 4 mg IV Q6H PRN; Protocol PRN Reason: NAUSEA OR VOMITING Stop: 01/20/25 21:18 Sennosides (Senna Tablet) 2 tab PO QDAY [facility]; Protocol Stop: 01/21/25 08:59 Tizanidine HCl (Tizanidine Hcl 2 Mg Tablet) 2 mg PO QID [facility] Stop: 01/20/25 21:44 Discontinued Medications Acetaminophen (Acetaminophen 325 Mg Tablet) 650 mg PO X1 ONE Stop: 12/21/24 20:59 Acetaminophen (Ofirmev Inj) 1,000 mg in 100 mls @ 250 mls/hr IV X1 ONE Stop: 12/21/24 18:29 Last Infusion: 12/21/24 19:50 Dose: Infused Lactated Ringer's (Lactated Ringers) 1,000 mls @ 999 mls/hr IV .Q1H1M ONE Stop: 12/21/24 19:39 Last Infusion: 12/21/24 20:34 Dose: Infused Ceftriaxone Sodium/Dextrose (Rocephin/D5w 1gm Iv Premix) 1 gm in 50 mls @ 100 mls/hr IV X1 ONE Stop: 12/21/24 19:55 Last Infusion: 12/21/24 20:03 Dose: Infused Doxycycline Hyclate 100 mg/ (Sodium Chloride) 100 mls @ 100 mls/hr IV X1 ONE Stop: 12/21/24 20:25 Last Infusion: 12/21/24 20:33 Dose: Infused Assessment & Plan Plan #Sepsis #UTI #Pneumonia The patient has chronic suprapubic catheter, urinalysis shows UTI, chest x-ray shows early bibasilar pneumonia. Suprapubic catheter was clogged last week and was changed. ? IV ceftriaxone daily started 12/21/2024 ? Follow microbiology blood and urine cultures #Left upper and lower extremity DVT Swelling left lower and upper extremity, Doppler ultrasound shows DVT nonocclusive, left common femoral, left superficial femoral, left popliteal and peroneal veins. Left upper extremity Doppler shows thrombus in the superficial basilic vein. Currently maintaining oxygen saturation on room air, denies any respiratory distress or chest pain, no clinical signs to consider PE but consider CT angiogram if respiratory distress occurs. ? Lovenox 100 mg subcu twice daily, consider transition to DOAC on discharge #Chronic pain #Muscle spasticity ? Patient takes multiple medications for muscle spasticity and chronic pain ? Reconcile home meds after med rec reconciled #Pressure induced deep tissue injury #Quadriplegic status status post C3-C5 fracture ? Wound care consult placed ? Pressure relieving mattress Disposition: Telemetry admit DVT prophylaxis: Lovenox 100 mg twice daily GI prophylaxis: Famotidine Diet: Regular Lines: PIV CODE STATUS: Full Plan of care discussed with attending Dr Deon Muro PGY 2 Attending Provider Attestation/Addendum Pt was evaluated and plan formulated together with the housestaff team. I have reviewed the residents note above and agree with most of its content. Please refer to the residents note for additional details.
[2024-12-21] MEDS: BACLOFEN 10 MG TABLET 20 MG PO (21:53)
[2024-12-21] MEDS: ACETAMINOPHEN 325 MG TABLET 650 MG PO (21:54)
[2024-12-21] MEDS: GABAPENTIN 100 MG CAPSULE PO (21:54)
[2024-12-21] MEDS: ENOXAPARIN SOD INJ 100 MG/ML SYRINGE SC (21:54)
[2024-12-22] VITALS (9 sets, daily range): BP systolic 98–125; BP diastolic 59–80; PULSE 78–91; RESP 16–99; TEMP 36.3–38.4; O2SAT 94–98; BMI 27.6
--- NOTE | 2024-12-22 01:35 | PC.NURSE ---
pt arrived to room 263 at 0017, pt A&O x4,GCS 15, pt stated his code status to be DNR, pt stated that he knows what a DNR code status means, and he explained to underwriter tthat he does not want CPR or intubation.
[2024-12-22] MEDS: GABAPENTIN 100 MG CAPSULE PO ×3 (05:33→21:23)
[2024-12-22] MEDS: tiZANidine HCL 2 MG TABLET PO ×2 (05:34→12:17)
[2024-12-22] MEDS: BACLOFEN 10 MG TABLET 20 MG PO ×3 (05:34→17:32)
[2024-12-22] MEDS: ACETAMINOPHEN 325 MG TABLET 650 MG PO (05:38)
[2024-12-22 07:05] LABS: Collection Type, Urine Clean Catch
--- NOTE | 2024-12-22 07:07 | PC.NURSE ---
[employer] reached out to Dr. Muro to ask if they had another treatment for this pt to treat the thrombus, per Dr. Muro, the lovenox dose the pt is getting is the treatment/right dose to treat it.
[2024-12-22 07:37] LABS: Basophils % (Auto) 0 % (0-2.5); Eosinophils # (Auto) 0.3 Thou/mm3 (0.0-0.5); Eosinophils % (Auto) 3 % (0-10); Hematocrit 30.6 % (41.0-53.0); Hemoglobin 10.6 g/dL (13.5-16.0); Immature Granulocytes % (Auto) 0 % (0-0); Immature Granulocytes Auto 0.03 Thou/mm3 (0.00-0.00); Lymphocytes # (Auto) 1.3 Thou/mm3 (1.0-4.8); Lymphocytes % (Auto) 12 % (10-50); Mean Corpuscular HGB Conc 34.6 g/dl (31.0-37.0); Mean Corpuscular Hemoglobin 29.4 pg (25.0-35.0); Mean Corpuscular Volume 85 fL (80-100); Monocytes % (Auto) 9 % (0-12); Neutrophils # (Auto) 8.5 Thou/mm3 (1.8-7.7); Neutrophils % (Auto) 76 % (37-80); Nucleated Red Blood Cell % 0 /100 WBC (0); Platelet Count 308 Thou/mm3 (140-440); RDW Standard Deviation 45.2 fL (35.1-43.9); Red Blood Count 3.61 Miln/mm3 (4.50-5.90); White Blood Count 11.1 Thou/mm3 (3.8-10.6)
[2024-12-22 07:51] LABS: Magnesium 1.8 mg/dL (1.6-2.6); Phosphorous 3.2 mg/dL (2.4-5.1); Thyroid Stimulating Hormone 1.58 uIU/mL (0.55-4.78)
[2024-12-22 08:25] LABS: Bacteria,Urine 1+; Bilirubin,Urine Negative (Negative); Blood,Urine 1+ (Negative); Calcium Oxalate Crystals,Urine 1+; Clarity,Urine Turbid (Clear/Hazy); Color,Urine Yellow (Lt Yel-Yel); Glucose, Urine Negative (Negative); Ketones,Urine Negative (Negative); Leukocyte Esterase,Urine Positive (Negative); Nitrite,Urine Positive (Negative); Protein,Urine 1+ (Neg - Trace); RBC,Urine 30 /hpf (0-3); Specific Gravity,Urine 1.025 (1.001-1.035); Squamous Epithelial Cell,Urine 1 /hpf (0-5); WBC,Urine 300 /hpf (0-5)
[2024-12-22 08:34] LABS: INR 1.1 (0.9-1.3); Prothrombin Time 12.3 Seconds (9.0-12.2)
[2024-12-22] MEDS: ENOXAPARIN SOD INJ 100 MG/ML SYRINGE SC (08:53)
[2024-12-22] MEDS: SENNA TABLET 2 TAB PO (08:54)
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
--- NOTE | 2024-12-22 13:56 | PC.PT ---
PT eval only. Patient is quadriplegic and bedbound at baseline. Patient is at his PLOF. RN made aware.
--- NOTE | 2024-12-22 14:40 | PC.SS ---
SS met with patient who is alert/oriented. Patient was able to verify demographics. Patient states he resides with his and mother. Patient was admitted for sepsis. Patient requires total care. Patient is quadriplegic from a fall last year. Patient has a hospital bed, luzmaria lift, specialty mattress, manual wheelchair. Patient follows at the [facility]. They are working on getting patient an electric wheelchair. Patient is already open to [facility]. They come in for the superpubic cath. Patient takes the [facility] [employer] transportation system. On occasion they have used the [employer] transportation system. Patient d/c plan is to return home with family. Patient will need [employer] transportation upon discharge. Patient's alt medical decision maker is his , Susan @ [phone]
[2024-12-22] MEDS: APIXABAN 2.5 MG TABLET 10 MG PO (21:22)
[2024-12-22] MEDS: bisacodyL 10 MG SUPP PR (21:22)
[2024-12-22] MEDS: tiZANidine HCL 2 MG TABLET 4 MG PO (21:22)
[2024-12-22] MEDS: DIAZEPAM 5 MG TABLET PO (21:23)
[2024-12-22] MEDS: cefTRIAXone/D5w 1gm IV premix 1 GM/50 ML BAG IV (21:23)
[2024-12-23] VITALS (10 sets, daily range): BP systolic 100–132; BP diastolic 59–75; PULSE 70–98; RESP 18–98; TEMP 36.6–38; O2SAT 95–100; BMI 28.3
[2024-12-23] MEDS: BACLOFEN 10 MG TABLET 20 MG PO ×4 (00:40→17:42)
[2024-12-23] MEDS: GABAPENTIN 100 MG CAPSULE PO ×2 (05:28→14:29)
[2024-12-23 06:47] LABS: Basophils % (Auto) 0 % (0-2.5); Eosinophils # (Auto) 0.4 Thou/mm3 (0.0-0.5); Eosinophils % (Auto) 3 % (0-10); Hematocrit 30.6 % (41.0-53.0); Hemoglobin 10.3 g/dL (13.5-16.0); Immature Granulocytes % (Auto) 1 % (0-0); Immature Granulocytes Auto 0.05 Thou/mm3 (0.00-0.00); Lymphocytes # (Auto) 1.8 Thou/mm3 (1.0-4.8); Lymphocytes % (Auto) 17 % (10-50); Mean Corpuscular HGB Conc 33.7 g/dl (31.0-37.0); Mean Corpuscular Hemoglobin 29.2 pg (25.0-35.0); Mean Corpuscular Volume 87 fL (80-100); Monocytes % (Auto) 9 % (0-12); Neutrophils # (Auto) 7.1 Thou/mm3 (1.8-7.7); Neutrophils % (Auto) 69 % (37-80); Nucleated Red Blood Cell % 0 /100 WBC (0); Platelet Count 361 Thou/mm3 (140-440); RDW Standard Deviation 46.5 fL (35.1-43.9); Red Blood Count 3.53 Miln/mm3 (4.50-5.90); White Blood Count 10.3 Thou/mm3 (3.8-10.6)
[2024-12-23 07:19] LABS: Alanine Aminotransferase 24 U/L (10-49); Albumin, Serum 3.8 gm/dL (3.5-5.0); Albumin/Globulin Ratio 1.2 (1.2-2.2); Alkaline Phosphatase 85 U/L (46-116); Anion Gap 9 (7-16); Aspartate Amino Transferase 15 U/L (0-34); BUN/Creatinine Ratio 16 Ratio (12-20); Bilirubin,Total 0.5 mg/dL (0.3-1.2); Blood Urea Nitrogen 8 mg/dL (9-23); Calcium 8.6 mg/dL (8.3-10.6); Calcium (Corrected) 8.8 mg/dL (8.5-10.1); Carbon Dioxide 24.7 mMol/L (20.0-31.0); Chloride 100 mMol/L (98-107); Creatinine (Component) 0.5 mg/dL (0.6-1.3); Estimated Creatinine Clearance 230.2 mL/min (>60); Globulin 3.1 gm/dL (2.3-3.5); Glucose 107 mg/dL (74-106); Magnesium 1.6 mg/dL (1.6-2.6); Osmolality,Calculated 266 (275-295); Phosphorous 2.8 mg/dL (2.4-5.1); Potassium 3.7 mMol/L (3.4-5.1); Sodium 134 mMol/L (136-145); Total Protein 6.9 gm/dL (5.7-8.2); eGFR > 60 See Note
[2024-12-23] MEDS: SENNA TABLET 2 TAB PO (08:13)
[2024-12-23] MEDS: CHOLECALCIFEROL (Vitamin D3) 1,000 IU TABLET 1000 IU PO (08:13)
[2024-12-23] MEDS: APIXABAN 2.5 MG TABLET 10 MG PO ×2 (08:14→20:44)
[2024-12-23] MEDS: cefTRIAXone/D5w 1gm IV premix 1 GM/50 ML BAG IV (08:14)
[2024-12-23] MEDS: ACETAMINOPHEN 500 MG TABLET 1000 MG PO (08:18)
[2024-12-23] MEDS: Magnesium Sulfate 4 GM Ivpb 4 GM/50 ML BAG IV (10:03)
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
[2024-12-23] MEDS: GABAPENTIN 100 MG CAPSULE 400 MG PO (16:12)
[2024-12-23] MEDS: DANTROLENE 100 MG PO (17:42)
[2024-12-23] MEDS: tiZANidine HCL 2 MG TABLET 4 MG PO (20:44)
[2024-12-23] MEDS: bisacodyL 10 MG SUPP PR (20:45)
[2024-12-23] MEDS: DIAZEPAM 5 MG TABLET PO (20:45)
[2024-12-24] VITALS (9 sets, daily range): BP systolic 112–142; BP diastolic 70–86; PULSE 85–105; RESP 16–99; TEMP 36.3–37; O2SAT 93–97; BMI 28.2
[2024-12-24] MEDS: GABAPENTIN 100 MG CAPSULE 400 MG PO ×5 (00:40→23:42)
[2024-12-24] MEDS: DANTROLENE 100 MG PO ×5 (00:41→23:43)
[2024-12-24] MEDS: BACLOFEN 10 MG TABLET 20 MG PO ×5 (00:41→23:42)
[2024-12-24 06:23] LABS: Basophils % (Auto) 0 % (0-2.5); Eosinophils # (Auto) 0.3 Thou/mm3 (0.0-0.5); Eosinophils % (Auto) 3 % (0-10); Hematocrit 28.9 % (41.0-53.0); Hemoglobin 10.2 g/dL (13.5-16.0); Immature Granulocytes % (Auto) 1 % (0-0); Immature Granulocytes Auto 0.05 Thou/mm3 (0.00-0.00); Lymphocytes # (Auto) 1.7 Thou/mm3 (1.0-4.8); Lymphocytes % (Auto) 19 % (10-50); Mean Corpuscular HGB Conc 35.3 g/dl (31.0-37.0); Mean Corpuscular Hemoglobin 29.9 pg (25.0-35.0); Mean Corpuscular Volume 85 fL (80-100); Monocytes # (Auto) 0.8 Thou/mm3 (0.0-0.8); Monocytes % (Auto) 10 % (0-12); Neutrophils # (Auto) 5.9 Thou/mm3 (1.8-7.7); Neutrophils % (Auto) 67 % (37-80); Nucleated Red Blood Cell % 0 /100 WBC (0); Platelet Count 382 Thou/mm3 (140-440); RDW Standard Deviation 44.3 fL (35.1-43.9); Red Blood Count 3.41 Miln/mm3 (4.50-5.90); White Blood Count 8.8 Thou/mm3 (3.8-10.6)
[2024-12-24 06:47] LABS: Alanine Aminotransferase 26 U/L (10-49); Albumin, Serum 3.8 gm/dL (3.5-5.0); Albumin/Globulin Ratio 1.2 (1.2-2.2); Alkaline Phosphatase 84 U/L (46-116); Anion Gap 9 (7-16); Aspartate Amino Transferase 17 U/L (0-34); BUN/Creatinine Ratio 18 Ratio (12-20); Bilirubin,Total 0.5 mg/dL (0.3-1.2); Blood Urea Nitrogen 7 mg/dL (9-23); Calcium 8.7 mg/dL (8.3-10.6); Calcium (Corrected) 8.9 mg/dL (8.5-10.1); Carbon Dioxide 25.5 mMol/L (20.0-31.0); Chloride 100 mMol/L (98-107); Creatinine (Component) 0.4 mg/dL (0.6-1.3); Estimated Creatinine Clearance 287.1 mL/min (>60); Globulin 3.2 gm/dL (2.3-3.5); Glucose 117 mg/dL (74-106); Magnesium 1.8 mg/dL (1.6-2.6); Osmolality,Calculated 267 (275-295); Phosphorous 3.6 mg/dL (2.4-5.1); Potassium 3.6 mMol/L (3.4-5.1); Sodium 134 mMol/L (136-145); eGFR > 60 See Note
[2024-12-24] MEDS: cefTRIAXone/D5w 1gm IV premix 1 GM/50 ML BAG IV (08:14)
[2024-12-24] MEDS: CHOLECALCIFEROL (Vitamin D3) 1,000 IU TABLET 1000 IU PO (08:15)
[2024-12-24] MEDS: APIXABAN 2.5 MG TABLET 10 MG PO ×2 (08:15→20:30)
[2024-12-24] MEDS: SENNA TABLET 2 TAB PO (08:15)
--- NOTE | 2024-12-24 10:38 | ESPR_ITS ---
Documentation for date of: 12/24/24 Subjective - Hospitalist Subjective Interval history: Patient seen and evaluated this AM. Patient complaining of LLE discomfort and constipation. at bedside states she digitally disimpacts the patient and attempted last night, but had minimal stool output. No acute events overnight otherwise. Afebrile Exam Vital Signs Temp Pulse Resp BP Pulse Ox O2 Del Method 98.2 F 87 17 126/77 93 L Room Air 12/24/24 08:00 12/24/24 08:00 12/24/24 08:00 12/24/24 08:00 12/24/24 08:00 12/24/24 04:00 Narrative Gen: No acute distress HEENT: NCAT, PERRLOU, Sclera anicteric, conjunctiva noninjected, oral mucosa moist without erythema Neck: Supple, full range of motion, no LAD CV: RRR, no murmurs, rubs or gallops Resp: CTAB/L, no wheezing, rhonchi or rales GI: abdomen soft, distended, bowel sounds noted, no tenderness to palpation, no guarding or rebound tenderness, no organomegaly Skin: clean, dry, no rashes, lesions or ecchymosis Ext: LLE edema and mild tenderness to palpation in calf. LUE edema noted as well. Neuro: A&O x3, CN II- XII intact b/l, no focal neurological deficits Objective - Hospitalist Labs Diagram: 12/24/24 05:53 12/24/24 05:53 Labs: Laboratory Results - last 24 hr 12/24/24 05:53 WBC 8.8 RBC 3.41 L Hgb 10.2 L Hct 28.9 L MCV 85 MCH 29.9 MCHC 35.3 RDW Std Deviation 44.3 H Plt Count 382 Neut % (Auto) 67 Lymph % (Auto) 19 [place] % (Auto) 10 Eos % (Auto) 3 Baso % (Auto) 0 Neut # (Auto) 5.9 Lymph # (Auto) 1.7 [place] # (Auto) 0.8 Eos # (Auto) 0.3 Baso # (Auto) 0.0 Immature Gran # (Auto) 0.05 H Absolute Nucleated RBC 0.00 Immature Gran % 1 H Nucleated RBC % 0 Sodium 134 L Potassium 3.6 Chloride 100 Carbon Dioxide 25.5 Anion Gap 9 BUN 7 L Creatinine 0.4 L Estim Creat Clear Calc 287.1 eGFR > 60 BUN/Creatinine Ratio 18 Glucose 117 H Calculated Osmolality 267 L Calcium 8.7 Corrected Calcium 8.9 Phosphorus 3.6 Magnesium 1.8 Total Bilirubin 0.5 AST 17 ALT 26 Alkaline Phosphatase 84 Total Protein 7.0 Albumin 3.8 Globulin 3.2 Albumin/Globulin Ratio 1.2 Assessment & Plan Patient Synopsis 49-year-old male with past medical history of hypertension, quadriplegia following a fall and C3 C5 fracture, chronic suprapubic catheter who was brought to the ED due to left lower extremity swelling with fever chills. Patient was admitted for catheter associated UTI, pneumonia and left upper and left lower extremity DVT. #Pseudomonas Aeruginosa Catheter associated urinary tract infection Patient came in and found to have 2 or more SIRS criteria and was evaluated for sepsis. However, based upon further work-up, sepsis was ruled out. Patient has a chronic suprapubic catheter last exchanged 1 week prior to presentation Urinalysis shows UTI Chest x-ray shows bibasilar pneumonia however unlikely patient does not have any leukocytosis on auscultation patient is clear bilaterally making pneumonia lower on the differentials Ucx positive for Pseudomonas, resistant to rocephin (12/31-12/24). Will Switch to levofloxacin 750mg IV daily (12/24- ) x 5 days #Left upper and lower extremity deep vein thrombosis On presentation patient main complaint was left lower extremity swelling venous ultrasound was done of left upper and left lower extremity showing deep vein nonocclusive thrombi of the left common femoral, left superficial femoral and left popliteal and peroneal veins. Upper extremity ultrasound shows thrombus in the superficial basilic vein. ? On Eliquis 10 mg twice daily #Chronic pain #Muscle spasms resumed home medications as taken at home ? Resumed gabapentin ? Resume tizanidine ? Resume patient's baclofen ? resume dantrolene #Quadriplegic status post C3-C5 fracture On examination there is evidence of prior deep tissue injuries however healing at this time ? Wound care consult ? Pressure relieving mattress ? Frequent repositioning - started on bowel regiment due to contstipation. Will order fleet enema, miralax daily and senna/docusate BID Health Maintainance: Disposition: Tele, possible dc in 24-48hours once patient has BM Fluids: None Feeding: Cardiac diet, low carb cons, Thrombo prophylaxis: Eliquis Gastric Ulcer prophylaxis: Pantoprazole CODE STATUS: DNR Time Spent with Patient Time: Total time spent is greater than 50% in coordination of care (as documented) at patient's floor/unit and/or counseling patient: 25min Time with patient: 25 - 35 minutes Reason for Continued Stay Reason for continued stay: IV antibiotics Quality Measures Quality Measures none
[2024-12-24] MEDS: SENNA/DOCUSATE SOD 1 TAB TABLET PO ×2 (11:40→20:29)
[2024-12-24] MEDS: POLYETHYLENE GLYCOL 17 GM PACKET PO (11:40)
[2024-12-24] MEDS: DIAZEPAM 5 MG TABLET PO (20:29)
[2024-12-24] MEDS: tiZANidine HCL 2 MG TABLET 4 MG PO (20:29)
[2024-12-24] MEDS: bisacodyL 10 MG SUPP PR (20:29)
[2024-12-25] VITALS (7 sets, daily range): BP systolic 116–122; BP diastolic 61–76; PULSE 75–99; RESP 17–99; TEMP 36.1–37.1; O2SAT 94–100
[2024-12-25] MEDS: GABAPENTIN 100 MG CAPSULE 400 MG PO ×2 (05:38→12:06)
[2024-12-25] MEDS: BACLOFEN 10 MG TABLET 20 MG PO ×2 (05:38→12:06)
[2024-12-25] MEDS: DANTROLENE 100 MG PO ×2 (05:38→12:07)
[2024-12-25] MEDS: CHOLECALCIFEROL (Vitamin D3) 1,000 IU TABLET 1000 IU PO (09:00)
[2024-12-25] MEDS: SENNA/DOCUSATE SOD 1 TAB TABLET PO (09:00)
[2024-12-25] MEDS: LEVOFLOXACIN/D5W 750MG IVPB 750 MG/150 ML BAG 100 MG IV (09:01)
[2024-12-25] MEDS: APIXABAN 2.5 MG TABLET 10 MG PO (09:01)
--- NOTE | 2024-12-25 11:34 | ESDS_ITS ---
<Statement entered by Emi Cordoba DO - 12/25/24 13:02> I, Emi Cordoba DO, attest that I was physically present for the miranda portions of the service and evaluated the patient with the resident and I reviewed and discussed the case with the resident and agree with the resident's findings and plans of care as documented above Planned Discharge Date 12/25/24 DS: Providers Provider Date of admission: 12/21/24 20:42 Primary care physician: Johnson Donahue MD Admitting Provider: Arnulfo Chavarria MD Attending Provider on Admission: Emi Cordoba DO Consults: 12/21/24 20:11 Referral Wound Care Routine Comment: 12/21/24 21:20 Referral Physical Therapy Routine Comment: Physician Instructions: 12/22/24 01:10 Health Equity Referral - Nutrition Routine Comment: Positive screening for nutrition needs. Health Equity Referral - Utilities Routine Comment: Positive screening for utility assistance needs. Attending Provider on DC: Emi Cordoba DO Discharging Provider: John Reilly MD DS: Diagnosis Discharge Diagnosis (1) Community acquired pneumonia: Status: Acute (2) Deep vein thrombosis of left lower extremity: Status: Acute (3) Constipation: Status: Acute Problem List Completed Was Problem List Reviewed/Reconciled?: Yes Hospital Course Hospital Course Hospital course: Hospital Course: Mr Huang is a 49-year-old male with past medical history of hypertension, quadriplegia following a fall and C3 C5 fracture, chronic suprapubic catheter who was brought to the ED due to left lower extremity swelling with fever chills. Patient was admitted for catheter associated UTI, pneumonia and left upper and left lower extremity DVT. Chest x-ray shows bibasilar pneumonia however unlikely patient does not have any leukocytosis. Ucx positive for Pseud omonas, resistant to rocephin (12/31-12/24). He was switched to levofloxacin 750mg IV daily (12/24- ) x 7 days. Upper extremity ultrasound showed thrombus in the superficial basilic vein, for which he is advised to continue on Eliquis 10 mg twice daily x7 days and then 5mg twice daily. Close follow up with PCP advised, with frequent changes in position, to avoid bedsores. Problems on this admission: - Pseudomonas Aeruginosa Catheter associated urinary tract infection - Left upper and lower extremity deep vein thrombosis - Suspected GNR or Atypical Pneumonia - Chronic pain - Muscle spasms - Quadriplegic status post C3-C5 fracture Procedures: None Discharge instructions: - Follow up with PCP within 1 week - Take Benefiber every night for constipation - Continue Levaquin 500mg once daily for x6 more days to complete antibiotic course - Take Eliquis as prescribed for left leg DVT - Start Omeprazole 40mg daily while on anticoagulation with Eliquis - May return to ED if symptoms worsen We are grateful to be able to participate in Mr Huang's care. We wish him the best. Plan of care discussed with attending Dr Cordoba , - John Reilly M.D. PGY2 Disclaimer: Minor errors in manager relocation may be present as this note was dictated using voice recognition software. Status at Discharge Cognitive/behavioral status at discharge: Stable and returned to baseline Time Spent with Patient Time attestation: Total time spent providing and/or coordinating discharge services: more than 50% Time spent: Greater than 30 minutes Home Health Home Health Referral Orders: 12/25/24 09:42 Home Health Referral Routine Reason For Exam: uti Home-Bound The patient must either because of illness or injury, need the aid of supportive devices such as crutches, canes, wheelchairs, and walkers; the use of special transportation; or the assistance of another person in order to leave their place of residence; OR have a condition such that leaving his or her home is medically contraindicated. In addition, the patient also meets the following criteria: patient is normally unable to leave the home and leaving home requires considerable taxing effort. Addendum to Home Health Certification Practitioner's Certification: I certify that the patient has been under my care in the hospital and the care of attending physician (see below). We had a [id number] encounter on (see date below). My clinical findings indicate that the patient is home bound per the above criteria and the Home Health Services noted in these orders are medically necessary. The primary reason for the [id number] encounter is related to the fact that the patient requires home health services. Date Certifying [id number] Physician Encounter: 12/21/24 Physician's Name who will Assume Oversight for Services: Johnson Donahue Physician's Phone No.who will Assume Oversight for Service: [employer] - Community Resources: No PT to Evaluate: No PT to evaluate and provide a treatmnet plan to increase patient's mobility and strength. Wound Care: No IV Therapy: No Discontinue PICC Line Once Treatment Complete: No RN Safety Evaluation: Yes RN to evaluate and create a plan of care that will produce positive outcomes. Palliative Treatment: No Palliative treatment and evaluate the need for hospice. Home Health Aide - Personal Care: Yes Home Health Aide to assist with any ADL's. Exam Vital Signs Temp Pulse Resp BP Pulse Ox O2 Del Method 97.4 F 84 17 120/72 100 Room Air 12/25/24 08:00 12/25/24 08:03 12/25/24 08:03 12/25/24 08:00 12/25/24 08:00 12/25/24 04:00 Narrative Exam Physical Exam GENERAL: NAD, AAOx3, quadriplegic, suprapubic catheter HEENT: Moist mucosa. Eyes open, symmetrical, & clear CARDIO: Heart RRR, no obvious murmurs PULM: No noted coughing/dyspnea CTA B/L, no R/W/R GI: Abdomen soft, nondistended, no pain on palpation. BSx4 SKIN/MSK/EXT: No wounds/rashes/edema/amputations, no pain on palpation. Pedal pulses present B/L NEURO: AAOx3, no focal neuro deficits Discharge Plan Plan Patient Disposition: HOME (Self Care) Patient condition on transfer: Stable Care Plan Goals: - Follow up with PCP within 1 week - Take Benefiber every night for constipation - Continue Levaquin 500mg once daily for x6 more days to complete antibiotic course - Take Eliquis as prescribed for left leg DVT - Start Omeprazole 40mg daily while on anticoagulation with Eliquis - May return to ED if symptoms worsen Prescriptions/Referrals Prescriptions/Med Rec: New Benefiber Healthy Shape 5 gram/7.4 gram powder 0.5 g PO HS 30 Days Qty: 248 0RF levofloxacin 500 mg tablet 500 mg PO QDAY 6 Days Qty: 6 0RF omeprazole 40 mg capsule,delayed release(DR/EC) 40 mg PO QDAY 42 Days Qty: 42 0RF Eliquis DVT-PE Treat 30D Start 5 mg (74 tabs) tablets,dose pack 5 mg PO BID 30 Days Qty: 60 0RF Continued dantrolene 100 mg capsule 100 mg PO Q6HR Patient Comments: TAKE 1 CAPSULE BY MOUTH FOUR TIMES DAILY baclofen 20 mg tablet 20 mg PO Q6H Patient Comments: TAKE 1 TABLET BY MOUTH FOUR TIMES DAILY gabapentin 100 mg capsule 400 mg PO Q6HR Patient Comments: TAKE 1 CAPSULE BY MOUTH FOUR TIMES DAILY diazepam 5 mg tablet 5 mg PO Q6H Patient Comments: TAKE 1 TABLET BY MOUTH EVERY NIGHT tizanidine 4 mg capsule 4 mg PO HS cholecalciferol (vitamin D3) 25 mcg (1,000 unit) tablet 25 mcg PO DAILY Patient Comments: TAKE 1 TABLET BY MOUTH EVERY DAY sennosides [senna] 8.6 mg tablet 8.6 mg PO DAILY Patient Comments: TAKE 2 TABLETS BY MOUTH ONCE DAILY bisacodyl 10 mg suppository 10 mg WI HS Patient Comments: PLACE 1 SUPPOSITORY (10 MG TOTAL) RECTALLY NIGHTLY. Referrals: Johnson Donahue MD [Primary Care Provider] - Patient/Caregiver Discharge Instructions Education Materials: Sepsis, DVT Dc, Discharge Instructions Caring ... Print Language: Japanese Stand Alone Forms: Cris Award Info., Patient Portal Info Letter Discharge Order Discharge Orders: Discharge (Routine); Ordered 12/25/24 Ordered By: John Reilly Quality Discharge Quality Measures VTE prophylaxis
--- NOTE | 2024-12-25 11:45 | PC.SS ---
FINANCIAL SECRETARY spoke to [employer] regarding transportation for pt [facility] care gave eta of 1:15pm [place] [id number], FINANCIAL SECRETARY to follow up with [facility] and follow up with refferal to ETA.
--- NOTE | 2024-12-25 11:53 | PC.SS ---
WELDER FITTER HELPER followed up with [facility] and [facility], and pt was placed on will call. Siomara stated they will follow up with WELDER FITTER HELPER once they have an auth from [facility].
--- NOTE | 2024-12-25 12:01 | PC.SS ---
eta for pt via [facility] is 1500
--- NOTE | 2024-12-25 14:44 | PC.CC ---
received MARIA GUADALUPE referra, pt on service with [facility]. Referral sent to [facility]
--- NOTE | 2024-12-25 14:51 | PC.NURSE ---
social media editor called, christiana for transportation running behind, lydia for pickup now 1600
--- NOTE | 2024-12-25 15:00 | PC.NURSE ---
Pt at bedside for discharge instructions, is primary career consultant at home. Educated and pt on new prescriptions, was able to get medications from [facility] before discharge. Sent pt home medication with patient at discharge. Educated and patient to monitor for inc swelling or tenderness with dvt, going home on eliquis for dvt. Pt and verbalized understanding of follow up with pcp in 1 week. Sent [employer] for coccyx protection and wound care supplies for suprapubic catheter with pt and to have at home. Home health following for suprapubic catheter maintenance. Called Dr. Reilly before discharge, ok to discharge.
--- NOTE | 2024-12-27 08:41 | PC.CC ---
Addendum entered by Yaneli Borges RN 12/27/24 09:16: per [facility], SOC date 12/27/24 Original Note: [facility] accepted and booked,, SOC is still pending.
== END 2024-12-25 16:44 | disposition home health service (06) | DRG 197 ==
LOC: SERX 19:32 → SERHOLD 20:52 → S2NX 12-22 00:18
PROVIDERS: Registered Nurse General Practice; Student in an Organized Health Care Education/Training Program; Admitting Provider Internal Medicine; Emergency Provider Emergency Medicine; PCP Family Medicine; Visit Provider Internal Medicine
DX: I82.402 Acute embolism and thrombosis of unspecified deep veins of left lower extremity (principal); G82.50 Quadriplegia, unspecified; Z74.01 Bed confinement status; J18.9 Pneumonia, unspecified organism; L89.152 Pressure ulcer of sacral region, stage 2; I82.612 Acute embolism and thrombosis of superficial veins of left upper extremity; G89.29 Other chronic pain; A41.9 Sepsis, unspecified organism; K59.00 Constipation, unspecified; M62.838 Other muscle spasm; I10 Essential (primary) hypertension; N39.0 Urinary tract infection, site not specified; D64.9 Anemia, unspecified; Z87.891 Personal history of nicotine dependence; Z93.59 Other cystostomy status; T83.518A Infection and inflammatory reaction due to other urinary catheter, initial encounter; Y84.6 Urinary catheterization as the cause of abnormal reaction of the patient, or of later complication, without mention of misadventure at the time of the procedure; Z16.19 Resistance to other specified beta lactam antibiotics; Z66 Do not resuscitate; Z79.01 Long term (current) use of anticoagulants
CPT/HCPCS: 36415; 71045; 80053; 81001; 83605; 83615; 83690; 83735; 83880; 84100; 84145; 84443; 84484; 85025; 85610; 85730; 87040; 87077; 87081; 87086; 87186; 87400; 87811; 93971; 96365; 96368; 96372; 97161; 99285; J0131; J0696; J1650; J1956; J3475; J3490; J7120; A9270

== ENCOUNTER → 2025-04-05 | Outpatient (CLI) | payer MEDICAID, SELFPAY ==
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
== END | disposition home or self-care (01) ==
PROVIDERS: PCP Nurse Practitioner Family; Referring Provider Nurse Practitioner Family; Visit Provider Nurse Practitioner Family
DX: M51.360 Other intervertebral disc degeneration, lumbar region with discogenic back pain only (principal); G82.54 Quadriplegia, C5-C7 incomplete; M54.6 Pain in thoracic spine; M54.50 Low back pain, unspecified; S39.92XS Unspecified injury of lower back, sequela; S12.9XXS Fracture of neck, unspecified, sequela; S29.9XXS Unspecified injury of thorax, sequela; V89.9XXS Person injured in unspecified vehicle accident, sequela
CPT/HCPCS: 72050; 72070; 72110

== ENCOUNTER → 2025-05-06 | Outpatient (CLI) | payer MEDICAID, SELFPAY ==
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
--- NOTE | 2025-05-06 16:08 | XR_ITS ---
Examination: Lumbar spine, 5 views Technique: Lumbar spine AP, lateral, coned lateral lower lumbar spine, bilateral obliques 5 views Exam date and time: May 06, 2025 1707 hrs. Indications: Polyarthritis months, joint pain. Findings: Adequate alignment lumbar vertebral bodies Mild to moderate lumbar disc narrowing lower 3 lumbar levels Prominent lumbar spondylosis, osteophytes measuring up to 27 mm in thickness especially anterior to L2-L3 No spondylolisthesis Diffuse advanced facet arthropathy Moderate to advanced bilateral hip osteoarthritis Impression: Prominent lumbar spondylosis Mild to moderate lumbar degenerative disc disease lower 3 lumbar levels with spinal stenosis
== END | disposition home or self-care (01) ==
PROVIDERS: PCP Nurse Practitioner Family; Referring Provider Nurse Practitioner Family; Visit Provider Nurse Practitioner Family
DX: G82.54 Quadriplegia, C5-C7 incomplete (principal); M15.9 Polyosteoarthritis, unspecified; M47.816 Spondylosis without myelopathy or radiculopathy, lumbar region; M51.360 Other intervertebral disc degeneration, lumbar region with discogenic back pain only; M48.061 Spinal stenosis, lumbar region without neurogenic claudication; M51.34 Other intervertebral disc degeneration, thoracic region; S12.9XXA Fracture of neck, unspecified, initial encounter; X58.XXXA Exposure to other specified factors, initial encounter
CPT/HCPCS: 72050; 72072; 72110

== ENCOUNTER 2025-05-20 10:28 | Emergency (ER) | payer MEDICAID, SELFPAY ==
[2025-05-20 10:32] VITALS: BP 129/76; PULSE 60; RESP 18; TEMP 37.2; O2SAT 98
[2025-05-20 10:42] VITALS: BMI 28.7
[2025-05-20 10:43] VITALS: PULSE 75; O2SAT 99
--- NOTE | 2025-05-20 11:14 | PC.NURSE ---
Patient to er via ems to er stating [facility] sent him to er to get iv antibiotics, do to failure of outpatient po antibiotics. Patient quadraplegic from fall last year, patient states he is able to move left arm a little bit Patient denies pain, skin warm dry and pink. Patient awaiting to be seen by er provider, call light within reach.
--- NOTE | 2025-05-20 11:42 | EKG_ITS ---
[facility] Test Date: 2025-05-20 Pat Name: MYNOR LUGO Department: Room: - Gender: Male [employer] Man: : 1975 Requested By: Fox Marrero Order Number: [id number] Reading MD: Fox Marrero Measurements Intervals [place] Rate: 58 P: 49 CT: 168 QRS: 52 QRSD: 96 T: 56 QT: 417 QTc: 410 Interpretive Statements SINUS BRADYCARDIA POSSIBLE RIGHT VENTRICULAR CONDUCTION DELAY [RSR (QR) IN V1/V2] Compared to ECG 12/21/2024 18:20:30 Sinus rhythm no longer present T-wave abnormality no longer present /store/S0/[id number].pdf
--- NOTE | 2025-05-20 11:42 | XR_ITS ---
Examination: AP chest single view Technique one AP portable semiupright chest single view Date and time: May 20, 2025, 1147 hours, comparison December 21, 2024 INDICATIONS: Coughing congestion this week. FINDINGS: Minor blunting of the left lateral costophrenic angle. Normal heart size No pneumonia or pulmonary edema IMPRESSION: No pneumonia or pulmonary edema
--- NOTE | 2025-05-20 11:43 | PD.EDMALE ---
ED Male Genitalurinary RME/HPI General Chief complaint: Urogenital-Male Stated complaint: UTI Time Seen by Provider: 05/20/25 11:13 Arrival date/time: 05/20/25 10:28 RME / HPI RME / HPI Narrative: 50-year-old male patient with significant history of quadriplegia, more than a year ago, with suprapubic catheter, was sent to us by his PCP requesting for IV antibiotic due to multiple resistant organism growth on urinalysis that was done 3 weeks ago. Currently patient is not having any fever no vomiting. Is not taking any antibiotic. Related Data Home Medications ?Medication ?Instructions ?Recorded ?Confirmed baclofen 20 mg tablet 20 mg PO Q6H 12/22/24 12/22/24 bisacodyl 10 mg rectal suppository 10 mg OK HS 12/22/24 12/22/24 cholecalciferol (vitamin D3) 25 25 mcg PO DAILY 12/22/24 12/22/24 mcg (1,000 unit) tablet dantrolene 100 mg capsule 100 mg PO Q6HR 12/22/24 12/22/24 diazepam 5 mg tablet 5 mg PO Q6H 12/22/24 12/22/24 gabapentin 100 mg capsule 400 mg PO Q6HR 12/22/24 12/22/24 sennosides 8.6 mg tablet (senna) 8.6 mg PO DAILY 12/22/24 12/22/24 tizanidine 4 mg capsule 4 mg PO HS 12/22/24 12/22/24 Allergies Allergy/AdvReac Type Severity Reaction Status Date / Time johnson flavor Allergy Unknown SWELLING Verified 05/20/25 10:43 Review of Systems Review of Systems Narrative Review of Systems: Review of system reviewed and within normal limits except mentioned in HPI ED Exam Narrative Physical exam: VITAL SIGNS: Reviewed. GENERAL APPEARANCE: Alert and interactive, follows commands, no acute distress, HEAD AND FACE: Non-traumatic. ENT: PERRL, pink conjunctivitis, eyelid no trauma, Mucous membrane moist. NECK: Supple, nontender, no nuchal rigidity. CHEST: No tenderness, no crepitus, no paradoxical movement, no retractions. LUNGS: Clear, well ventilated, symmetric, no rales, no wheezing, no ronchi, no stridor, good breath sounds bilaterally. HEART: Regular rate, regular rhythm, no murmur, no gallops. ABDOMEN: Soft, positive bowel sounds, nondistended, no guarding, nontender, no rebound, no masses, suprapubic catheter intact RECTAL: Deferred. GENITAL: Deferred. NEUROLOGICAL: Minimal upper extremity movement no movement of the lower extremity, MUSCULOSKELETAL: low back nontender, full range of motion. EXTREMITIES: Nontender, full range of motion. SKIN: Color pink, dry, no rash, no lacerations, no abrasions, no contusions. LYMPHATICS: Deferred. Course Quality Measures none (Quadriplegia) Orders Category Date Time Status EKG (ED ONLY) *Do not use* NOW Care 05/20/25 11:42 Completed Urinary Catheter QS Care 05/20/25 12:40 Completed EKG (ED Only) Stat Exams 05/20/25 11:42 Draft XR chest 1V Stat Exams 05/20/25 11:42 Completed Blood Culture (Lab) Stat Lab 05/20/25 12:50 Received CBC Stat Lab 05/20/25 13:00 Completed Comprehensive Metabolic Panel Stat Lab 05/20/25 13:00 Completed Lactate (Lactic Acid) Stat Lab 05/20/25 13:00 Completed Partial Thromboplastin Time Stat Lab 05/20/25 13:00 Completed Procalcitonin Stat Lab 05/20/25 13:00 Completed UA, C/S IF [Urinalysis, C/S if Indicated] Stat Lab 05/20/25 14:10 Completed Urine Culture Stat Lab 05/20/25 14:10 Received Vital Signs Vital signs: Vital Signs Temperature 98.9 F 05/20/25 10:32 Pulse Rate 60 05/20/25 10:32 Respiratory Rate 18 05/20/25 10:32 Blood Pressure 129/76 05/20/25 10:32 Pulse Oximetry (%) 98 05/20/25 10:32 Oxygen Delivery Method Room Air 05/20/25 10:32 Urogenital - Male MDM Narrative MDM Narrative:: 50-year-old male patient with significant history of quadriplegia, more than a year ago, with suprapubic catheter, was sent to us by his PCP requesting for IV antibiotic due to multiple resistant organism growth on urinalysis that was done 3 weeks ago. Currently patient is not having any fever no vomiting. Is not taking any antibiotic. Patient's workup today all came back benign, except for the urine that showed sterile pyuria, I did not start the patient on antibiotic per discussion with Dr. Alberto DOMINGUEZ MD, since patient is not having any symptoms. Patient is afebrile no tachycardia CBC no leukocytosis Pro-Stefano is normal lactic acid is normal the only abnormality is pyuria in the urine, bacteria is rare. I advised patient to follow-up closely with urologist in 2 days, with the results of the culture and sensitivity. I personally reviewed and interpreted the x-ray of this patient. There is no acute abnormalities found, no infiltrates no pneumothorax no hemothorax normal chest x-ray. Review of other structures was without significant abnormal findings also. I additionally reviewed the radiologist report and agree with the interpretation. EKG as interpreted by me showed normal sinus rhythm, ventricular rate of 58 bpm, no ST segment elevation or depression noted. If the patient develop fever, pain, chills, patient is to come back to the emergency room for antibiotic management Patient data External records reviewed:: None Clinical information provided by:: patient Social determinants that could affect healthcare access:: none Patient has the following chronic illnesses:: Traumatic quadriplegia secondary to fall several years ago How is presenting disease/condition affected by chronic disease/condition?: exacerbated by Evaluation data The following diagnostics were reviewed and interpreted by me:: lab results, radiology exam(s) and EKG tracing(s) Lab and/or radiology exams considered but not ordered:: None Interpretation Summary: See MDM Medications / Prescriptions Medications or Prescriptions considered but not ordered:: None none none Medication administrations:: None Consultations Consultation(s) initiated? (list below): No Diagnosis Urogenital Male Differential Diagnosis: urinary tract infection and other (Quadriplegia, sterile pyuria) Most likely diagnosis given after review of the tests above:: Quadriplegia, sterile pyuria Admission Indicated Admission indicated?: not indicated Admission Request Was there a request for admission?: No Disposition Plan Disposition Plan: Discharge Discharge Attestation Discharge Attestation: The patient and all family members were given an opportunity to ask questions and understood the discharge instructions. Discharge instructions specifically effects, indications for sooner follow up or return to the emergency department, and the expected course of current diagnosis. Patient condition: Stable Discharge Plan Plan Patient Disposition: HOME (Self Care) Discharge Disposition comment: Stable Prescriptions/Referrals Prescriptions/Med Rec: No Action dantrolene 100 mg capsule 100 mg PO Q6HR Patient Comments: TAKE 1 CAPSULE BY MOUTH FOUR TIMES DAILY baclofen 20 mg tablet 20 mg PO Q6H Patient Comments: TAKE 1 TABLET BY MOUTH FOUR TIMES DAILY gabapentin 100 mg capsule 400 mg PO Q6HR Patient Comments: TAKE 1 CAPSULE BY MOUTH FOUR TIMES DAILY diazepam 5 mg tablet 5 mg PO Q6H Patient Comments: TAKE 1 TABLET BY MOUTH EVERY NIGHT tizanidine 4 mg capsule 4 mg PO HS cholecalciferol (vitamin D3) 25 mcg (1,000 unit) tablet 25 mcg PO DAILY Patient Comments: TAKE 1 TABLET BY MOUTH EVERY DAY sennosides [senna] 8.6 mg tablet 8.6 mg PO DAILY Patient Comments: TAKE 2 TABLETS BY MOUTH ONCE DAILY bisacodyl 10 mg suppository 10 mg OK HS Patient Comments: PLACE 1 SUPPOSITORY (10 MG TOTAL) RECTALLY NIGHTLY. Referrals: Donna)Lise PA-C [Primary Care Provider] - In 1 week Problem List Clinical Impression: Quadriplegia, Sterile pyuria Patient/Caregiver Discharge Instructions Discharge Activity: activity as tolerated Education Materials: Understanding Spinal Cord Disease Additional Instructions: Thank you for the opportunity for serving you today. You are stable for discharged . You are advised to: Follow-up with your urologist next week, bring the culture and sensitivity results to see if you need antibiotic or not if you have symptoms like fever chills return to emergency room right away Increase oral fluids You do not need antibiotic as of this time, your CBC showed normal no leukocytosis, lactic acid is normal your Pro-Stefano is normal, you are not having any sign of fever clinically you are not having any infection. Your urine showed pyuria however it could be colonizing bacteria Print Language: Bengali Stand Alone Forms: Cris Award Info., Patient Portal Info Letter CAAS/OBDULIO Supervising Physician RANULFO Supervising Physician: MD Alberto
[2025-05-20 12:13] VITALS: BP 122/70; PULSE 67; RESP 15; TEMP 36.7; O2SAT 96
--- NOTE | 2025-05-20 12:43 | PC.NURSE ---
16fr. collado suprapubic cathetar in place on arrival to er removed by Elida WYLIE and 18 fr. collado suprapubic cathetar inserted by Elida WYLIE, patient tolerated procedure well, 16fr. cath intact upon removal.
--- NOTE | 2025-05-20 12:48 | PC.NURSE ---
Ok for patient to eat per Elida [employer]OCIATE, patient provided with sandwich and orange juice.
[2025-05-20 13:12] LABS: Lactate (Lactic Acid) 1.3 mMol/L (0.4-2.0)
[2025-05-20 13:14] LABS: Basophils # (Auto) 0.0 Thou/mm3 (0.0-0.2); Basophils % (Auto) 0 % (0-2.5); Eosinophils # (Auto) 0.3 Thou/mm3 (0.0-0.5); Eosinophils % (Auto) 5 % (0-10); Hematocrit 37.7 % (41.0-53.0); Hemoglobin 12.4 g/dL (13.5-16.0); Immature Granulocytes Auto 0.01 Thou/mm3 (0.00-0.00); Lymphocytes # (Auto) 2.0 Thou/mm3 (1.0-4.8); Lymphocytes % (Auto) 30 % (10-50); Mean Corpuscular HGB Conc 32.9 g/dl (31.0-37.0); Mean Corpuscular Hemoglobin 29.7 pg (25.0-35.0); Mean Corpuscular Volume 90 fL (80-100); Monocytes # (Auto) 0.5 Thou/mm3 (0.0-0.8); Monocytes % (Auto) 7 % (0-12); Neutrophils # (Auto) 3.8 Thou/mm3 (1.8-7.7); Neutrophils % (Auto) 58 % (37-80); Nucleated Red Blood Cell # 0.00 Thou/mm3 (0.00-0.00); Nucleated Red Blood Cell % 0 /100 WBC (0); Platelet Count 243 Thou/mm3 (140-440); RDW Standard Deviation 50.4 fL (35.1-43.9); Red Blood Count 4.17 Miln/mm3 (4.50-5.90); White Blood Count 6.6 Thou/mm3 (3.8-10.6)
[2025-05-20 13:29] LABS: Partial Thromboplastin Time 30.8 Seconds (22.0-36.0)
[2025-05-20 13:53] LABS: Alanine Aminotransferase < 7 U/L (10-49); Albumin, Serum 4.4 gm/dL (3.5-5.0); Albumin/Globulin Ratio 1.4 (1.2-2.2); Alkaline Phosphatase 60 U/L (46-116); Anion Gap 9 (7-16); Aspartate Amino Transferase < 8 U/L (0-34); BUN/Creatinine Ratio 12 Ratio (12-20); Bilirubin,Total 0.5 mg/dL (0.3-1.2); Blood Urea Nitrogen 6 mg/dL (9-23); Calcium 9.9 mg/dL (8.3-10.6); Calcium (Corrected) 9.9 mg/dL (8.5-10.1); Carbon Dioxide 29.0 mMol/L (20.0-31.0); Chloride 104 mMol/L (98-107); Creatinine (Component) 0.5 mg/dL (0.6-1.3); Estimated Creatinine Clearance 228.5 mL/min (>60); Globulin 3.1 gm/dL (2.3-3.5); Glucose 91 mg/dL (74-106); Osmolality,Calculated 280 (275-295); Potassium 4.0 mMol/L (3.4-5.1); Procalcitonin < 0.04 ng/ml (0.0-0.49); Sodium 142 mMol/L (136-145); Total Protein 7.5 gm/dL (5.7-8.2); eGFR > 60 See Note
[2025-05-20 14:15] LABS: Collection Type, Urine Clean Catch
[2025-05-20 14:44] LABS: Amorphous Crystals,Urine Present (Absent); Bacteria,Urine Rare; Bilirubin,Urine Negative (Negative); Blood,Urine 2+ (Negative); Color,Urine Yellow (Lt Yel-Yel); Glucose, Urine Negative (Negative); Ketones,Urine Negative (Negative); Leukocyte Esterase,Urine Positive (Negative); Nitrite,Urine Negative (Negative); PH,Urine 7.0 (5.0-7.0); Protein,Urine 1+ (Neg - Trace); RBC,Urine 55 /hpf (0-3); Specific Gravity,Urine 1.011 (1.001-1.035); Squamous Epithelial Cell,Urine < 1 /hpf (0-5); Urobilinogen,Urine Negative mg/dL (0.0-1.0); WBC,Urine 264 /hpf (0-5)
[2025-05-20 15:34] LABS: Clarity,Urine Hazy (Clear/Hazy); Culture Indicated,Urine Yes
[2025-05-20 17:04] VITALS: BP 133/70; PULSE 67; RESP 16; TEMP 37.7; O2SAT 96
--- NOTE | 2025-05-20 17:08 | PC.NURSE ---
Patient awaiting ems transport home. Patient lying in gurney in supine position. Patient has no needs at this time, call light within reach.
[2025-05-20 20:27] VITALS: RESP 17
== END 2025-05-20 20:29 | disposition home or self-care (01) ==
PROVIDERS: Nurse Practitioner Family; Emergency Provider Family Medicine; PCP Nurse Practitioner Family
DX: R82.81 Pyuria (principal); G82.50 Quadriplegia, unspecified
CPT/HCPCS: 51702; 36415; 71045; 80053; 81001; 83605; 84145; 85025; 85730; 87040; 87077; 87086; 87186; 93005; 99284; A4314

== ENCOUNTER 2025-05-30 20:34 | Emergency (ER) | payer MEDICAID, SELFPAY ==
[2025-05-30 20:40] VITALS: BP 168/90; PULSE 98; RESP 18; TEMP 36.9; O2SAT 92
[2025-05-30 20:50] VITALS: PULSE 100; O2SAT 98; BMI 29.2
--- NOTE | 2025-05-30 21:04 | PD.EDADULT ---
ED General RME/HPI General Chief complaint: Abdominal Pain Stated complaint: ABD PAIN Time Seen by Provider: 05/30/25 21:47 Arrival date/time: 05/30/25 20:34 CC: Obstructed suprapubic catheter HPI patient stopped draining because between 3 and 4:00 this afternoon. tried to flush it multiple times without success at some #18. Patient denies fever or chills says occasionally he can void through his penis but has been unable to for the last 24 hours or so. Patient is awake alert oriented quadriplegic with no other complaints. Full sensation in the abdomen. Related Data Home Medications ?Medication ?Instructions ?Recorded ?Confirmed baclofen 20 mg tablet 20 mg PO Q6H 12/22/24 12/22/24 bisacodyl 10 mg rectal suppository 10 mg [place] HS 12/22/24 12/22/24 cholecalciferol (vitamin D3) 25 25 mcg PO DAILY 12/22/24 12/22/24 mcg (1,000 unit) tablet dantrolene 100 mg capsule 100 mg PO Q6HR 12/22/24 12/22/24 diazepam 5 mg tablet 5 mg PO Q6H 12/22/24 12/22/24 gabapentin 100 mg capsule 400 mg PO Q6HR 12/22/24 12/22/24 sennosides 8.6 mg tablet (senna) 8.6 mg PO DAILY 12/22/24 12/22/24 tizanidine 4 mg capsule 4 mg PO HS 12/22/24 12/22/24 Previous Rx's ?Medication ?Instructions ?Recorded sulfamethoxazole 800 1 tab PO QDAY 10 days #10 tabs 05/30/25 mg-trimethoprim 160 mg tablet (Bactrim DS) Allergies Allergy/AdvReac Type Severity Reaction Status Date / Time johnson flavor Allergy Unknown SWELLING Verified 05/20/25 10:43 Review of Systems Review of Systems Narrative Review of Systems: GEN: No fever, no chills, no weight loss EYES: No discharge, no visual changes, no pain HEENT: No ear pain, no congestion, no sore throat PULM: No shortness of breath, no cough, no congestion CV: No chest pain, no dyspnea on exertion, no palpitations GI: No nausea, no vomiting, no diarrhea, no pain, no constipation, + abdominal distention : No frequency, no urgency, no dysuria MUSC/SKEL: No joint pain, no back pain SKIN: No rash PSYCH: No hallucinations, no depression HEME/LYMPH: No easy bleeding or bruising tendencies NEURO: No weakness, no headache Past Medical History Past Medical History NEUROLOGIC: Positive Paralysis (Quadraplegic from fall/accident 2024) CARDIAC: Negative Congestive Heart Failure RESPIRATORY: Negative Chronic Obstructive Pulmonary Disease (COPD) GENITOURINARY: Positive Genitourinary Disorders; Negative Renal Disease MUSCULOSKELETAL: Positive Musculoskeletal Disorders ENDOCRINE: Negative Diabetes Mellitus Type 1 or Diabetes Mellitus Type 2 OTHER HISTORY: Positive Blood Transfusions; Negative Blood Transfusion Reaction, Anesthesia Reactions or Cancer Surgical History SURGICAL: Positive Tracheostomy (removed) Social History SMOKING STATUS: Former smoker ED Exam Narrative Physical exam: [General: Not in any acute distress Head normocephalic HEENT: Eyes pupils are PERRLA EOMs are intact mouth pink moist membranes exceedingly poor dentition with multiple caries. All of the subsystems HEENT are within acceptable limits Neck is supple nontender Chest equal chest rise nontender to palpation Respiratory: Clear to auscultation no wheezes crackles or rubs CV: Rate rhythm is regular no murmurs rubs or clicks Abdomen is distended secondary to distention, firm but not rigid, nontender, positive bowel sounds all 4 quadrants Back: No CVA tenderness no spinous process tenderness from cervical spine thoracic and lumbar spine Skin: Intact no petechiae rash induration ulceration or crepitus Extremities: Flaccid lower extremities with complete deconditioning subtle dorsal edema in both hands. Edema in both lower extremities. Neuro: Awake alert oriented x2 person and place quadriplegic Course Course Course Narrative: Bladder scan post replacement of the obstructed suprapubic catheter shows there is less than 100 mL in the bladder. Urine is infected we will discharge the patient home on antibiotics susceptible from the last micro Quality Measures none Orders Category Date Time Status Catheter [Urinary Catheter, Remove] ONCE Care 05/30/25 21:36 Completed Catheter [Urinary Catheter] QS Care 05/30/25 21:36 Active Urinalysis, C/S if Indicated Stat Lab 05/30/25 21:10 Completed Urine Culture Stat Lab 05/30/25 21:10 Received Vital Signs Vital signs: Vital Signs Temperature 98.5 F 05/30/25 20:40 Pulse Rate 98 05/30/25 20:40 Respiratory Rate 18 05/30/25 20:40 Blood Pressure 168/90 H 05/30/25 20:40 Pulse Oximetry (%) 92 L 05/30/25 20:40 Oxygen Delivery Method Room Air 05/30/25 20:40 PROCEDURES: Procedure Comment Existing suprapubic catheter removed without complication direct pressure applied to the stoma. Site was cleaned with Betadine. 20-gauge catheter was advanced smoothly without resistance with immediate flow of cloudy sediment filled urine into the Leija bag. Patient tolerated the procedure well balloon was inflated. Patient continued to drain spontaneously approximately 250 mL of urine. Patient expressed immediate relief upon drainage. Discharge Plan Plan Patient Disposition: HOME (Self Care) Patient condition on transfer: Stable Prescriptions/Referrals Prescriptions/Med Rec: New sulfamethoxazole-trimethoprim [Bactrim DS] 800-160 mg tablet 1 tab PO QDAY 10 Days Qty: 10 0RF No Action dantrolene 100 mg capsule 100 mg PO Q6HR Patient Comments: TAKE 1 CAPSULE BY MOUTH FOUR TIMES DAILY baclofen 20 mg tablet 20 mg PO Q6H Patient Comments: TAKE 1 TABLET BY MOUTH FOUR TIMES DAILY gabapentin 100 mg capsule 400 mg PO Q6HR Patient Comments: TAKE 1 CAPSULE BY MOUTH FOUR TIMES DAILY diazepam 5 mg tablet 5 mg PO Q6H Patient Comments: TAKE 1 TABLET BY MOUTH EVERY NIGHT tizanidine 4 mg capsule 4 mg PO HS cholecalciferol (vitamin D3) 25 mcg (1,000 unit) tablet 25 mcg PO DAILY Patient Comments: TAKE 1 TABLET BY MOUTH EVERY DAY sennosides [senna] 8.6 mg tablet 8.6 mg PO DAILY Patient Comments: TAKE 2 TABLETS BY MOUTH ONCE DAILY bisacodyl 10 mg suppository 10 mg [place] HS Patient Comments: PLACE 1 SUPPOSITORY (10 MG TOTAL) RECTALLY NIGHTLY. Referrals: John Hughes PA-C [Primary Care Provider] - In 1 week Problem List Clinical Impression: UTI (urinary tract infection), Suprapubic catheter dysfunction Patient/Caregiver Discharge Instructions Education Materials: ED Bladder Infection, Male (Adult) Additional Instructions: Take the antibiotics as prescribed follow-up with your primary care doctor if there is worsening or return of symptoms return the emergency room for reevaluation. Print Language: Cook Islander Stand Alone Forms: Cris Award Info., Patient Portal Info Letter, Work/School Release PA/OBDULIO Supervising Physician PA/PATIENT COORDINATOR Supervising Physician: Yvan Buenrostro ENP MDM Clinical Information Provided by: patient and EMS Medical Records reviewed [facility] and EMS Meds/Rx considered, not ordered None Labs/Rad/Tests considered, not ordered None Chronic Illness/Social Conditions Explain: Quadriplegic EKG EKG not done Labs Labs: interpreted by me Imaging Imaging interpretation: none Diagnosis Differential Diagnosis ED Complaint MDM: Dysfunctional, obstructed, broken suprapubic catheter.
[2025-05-30 21:23] LABS: Collection Type, Urine Catheter; Squamous Epithelial Cell,Urine 0 /hpf (0-5)
[2025-05-30 21:35] LABS: Bacteria,Urine 2+; Bilirubin,Urine Negative (Negative); Blood,Urine 2+ (Negative); Color,Urine Yellow (Lt Yel-Yel); Glucose, Urine Negative (Negative); Ketones,Urine Negative (Negative); Leukocyte Esterase,Urine Positive (Negative); Nitrite,Urine Positive (Negative); PH,Urine 6.5 (5.0-7.0); Protein,Urine 2+ (Neg - Trace); RBC,Urine 170 /hpf (0-3); Specific Gravity,Urine 1.013 (1.001-1.035); Urobilinogen,Urine Negative mg/dL (0.0-1.0); WBC,Urine 2533 /hpf (0-5)
[2025-05-30 21:38] LABS: Clarity,Urine Cloudy (Clear/Hazy); Culture Indicated,Urine Yes
[2025-05-30 23:25] VITALS: BP 133/77; PULSE 85; RESP 16; TEMP 37.2; O2SAT 95
== END 2025-05-30 23:48 | disposition home or self-care (01) ==
PROVIDERS: Registered Nurse General Practice; Emergency Provider Emergency Medicine; PCP Physician Assistant
DX: T83.090A Other mechanical complication of cystostomy catheter, initial encounter (principal); Y73.2 Prosthetic and other implants, materials and accessory gastroenterology and urology devices associated with adverse incidents; N39.0 Urinary tract infection, site not specified
CPT/HCPCS: 81001; 87077; 87086; 87186; 99284; A4314